=== PATIENT | female | born 1995 ===

== ENCOUNTER 2020-08-31 10:00 | Emergency (ER) | payer MEDICAID, SELFPAY ==
[2020-08-31 10:09] VITALS: BP 106/73; PULSE 81; RESP 14; TEMP 36.8; O2SAT 99; BMI 20.2
--- NOTE | 2020-08-31 10:59 | ED.DENTAL ---
HPI - Dental/Oral General Chief complaint: Dental/Oral Stated complaint: s/p dental surgery,pain Time Seen by Provider: 08/31/20 10:30 Source: patient Mode of arrival: ambulatory Limitations: no limitations History of Present Illness HPI Narrative: A 25-year-old female who is status post bilateral upper wisdom tooth removal on Monday presenting to the ED with complaints of worsening pain Motrin not helping. 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 She denies any other symptoms complaints or concerns at this time. MD Complaint: tooth pain Onset (ago): day(s) (Five days worse today) Duration: worsening Severity scale (1-10): >10 Relieving factors: NSAIDs Exacerbating factors: chewing, cold, heat and drinking fluids Context: other (Recent wisdom extraction) Treatment prior to arrival: none Related Data Previous Rx's Medication Instructions Recorded clindamycin HCl 600 mg PO TID 10 Days #60 cap 08/31/20 ibuprofen 800 mg PO Q8H PRN #14 tab 08/31/20 oxycodone 5 mg PO BID PRN #10 tab 08/31/20 Allergies Allergy/AdvReac Type Severity Reaction Status Date / Time No Known Allergies Allergy Unverified 03/12/20 16:51 [No Known Allergies*] Review of Systems Review of Systems: Constitutional : No Fever, No Chills, No changes in PO intake, No difficulty speaking, + recent dental procedure, + heat or cold intolerance while eating, no recent face trauma, ENT/Mouth : + Dental pain, No Sore throat, No Jaw pain, No throat swelling, No swallowing difficulty, no change in voice, No facial swelling, no drooling, no trismus, no bleeding, no lacerations, no tongue swelling, gum swelling, Eyes: No Eye Pain, No periorbital Swelling Cardiovascular : No Chest Pain, No SOB Respiratory : No Cough, No Sputum, No Wheezing, No Smoke Exposure, No Dyspnea Gastrointestinal : No Nausea, No Vomiting, No Diarrhea Genitourinary : No Dysuria Musculoskeletal : No Myalgias Skin : No rash, no facial swelling or redness, Neuro : No Weakness, No Numbness, No Headache Yes all other systems are reviewed and are negative PMFSH Past Medical History Attestation statement: The following information was validated with the patient. Medical History No known health problems Social History Social History Advance Directives: No Advance Directives Information Provided: No Physical Exam Vital Signs: Vital Signs: Last Vital Signs Temp 98.2 F 08/31/20 10:09 Pulse 81 08/31/20 10:09 Resp 14 08/31/20 10:09 BP 106/73 08/31/20 10:09 Pulse Ox 99 08/31/20 10:09 Body Mass Index 20.2 vital signs have been reviewed as normal and appeared to be correct. Blood pressure normal. Heart rate normal. Respiration rate normal. Temperature normal. Oxygen saturation normal. Appearance: Alert. Oriented X3. No acute distress. Head: Normal external exam. Normocephalic. Atraumatic. Eyes: PERRLA. EOMI. Conjunctiva and sclera normal. Eyelids normal. ENT: EAC normal. TM's Normal. Pharynx normal. Uvula midline. Moist mucous membranes. No trismus noted. No drooling noted. No muffled voice noted. Dentition: Bilateral upper extraction sites with sutures in place. No signs of infection. No fluctuance. Gingival within normal limits. No fluctuance. Not consistent with peritonsillar abscess. Not consistent with dental abscess. No salivary duct obstruction noted. Neck: Normal inspection. Neck supple. FROM. No adenopathy. Thyroid Normal. No meningeal signs. No neck mass noted. Trachea midline. CVS: Normal heart rate and rhythm. Heart sound normal. No murmurs noted. Pulses normal throughout. Respiratory: No respiratory distress. Painless inspiration. Breath sounds normal. No wheezes/rales/rhonchi noted. Chest nontender. No accessory muscle usage noted or decreased air movement noted. Back: Full range of motion noted. Skin: Skin warm and dry. Normal skin color. Normal skin turgor. No rashes/lesions/lacerations noted. Extremities:Extremities exhibit normal range of motion. Extremities nontender. Neuro: Oriented X 3. No motor deficit. No sensory deficit. Reflexes normal. Course Course Course Narrative: 25-year-old female status post wisdom teeth extraction. Presenting to the ED with complaints of worsening pain. On exam no signs of peritonsillar abscess or dental abscess. Will DC home with symptomatic treatment and instructions to return if any new or worsening symptoms to follow up with her electronic gaming device supervisor when he returns back to the office. Patient understands agrees the plan. MDM - Dental/Oral Medical Records Attestation: I reviewed the patient's medical records. Discharge Plan Discharge Clinical Impression: Toothache Patient Disposition: Home, Self-Care Instructions: Toothache (ED) Prescriptions: New clindamycin HCl 300 mg capsule 600 mg PO TID 10 Days Qty: 60 RF: 0 ibuprofen 800 mg tablet 800 mg PO Q8H PRN (Reason: pain) Qty: 14 RF: 0 oxycodone 5 mg tablet 5 mg PO BID PRN (Reason: pain) Qty: 10 RF: 0 Referrals: [facility] [Primary Care Provider] - 2 days (Your electronic gaming device supervisor) Print Language: Bengali
== END 2020-08-31 11:11 | disposition home or self-care (01) ==
PROVIDERS: Emergency Provider Emergency Medicine
DX: K08.89 Other specified disorders of teeth and supporting structures (principal)
CPT/HCPCS: 99283

== ENCOUNTER → 2020-09-07 09:15 | Outpatient (BNVA) | payer MEDICAID, SELFPAY | PROVIDERS: Visit Provider Advanced Practice Midwife | DX: N92.6 Irregular menstruation, unspecified (principal) | CPT/HCPCS: 81025; 99212 ==

== ENCOUNTER → 2020-09-29 11:56 | Outpatient (BNVA) | payer MEDICAID, SELFPAY | PROVIDERS: Visit Provider Advanced Practice Midwife | DX: Z30.09 Encounter for other general counseling and advice on contraception (principal) | CPT/HCPCS: 81025; 99212 ==

== ENCOUNTER 2020-11-10 12:04 | Outpatient (REF) | payer MEDICAID, SELFPAY ==
[2020-11-11 08:15] LABS: HBc Num1 0.05 S/CO (0.00-0.79); HIV AB/AG Nonreactive (Nonreactive); HIV Num 1 0.06 S/CO (0.00-0.99); Hepatitis B Core Antibody Nonreactive (Nonreactive)
[2020-11-11 08:43] LABS: ~HepC Num1 0.14 S/CO (0.00-0.79); ~Hepatitis C Antibody Nonreactive (Nonreactive)
[2020-11-11 08:54] LABS: Syphilis Screen Nonreactive (Nonreactive)
[2020-11-11 11:25] LABS: BV Int Neg Control Negative (Negative); BV Int Pos Control Positive (Positive)
[2020-11-11 12:06] LABS: CT PCR NOT DETECTED (Not Detect.); NG PCR NOT DETECTED (Not Detect.)
== END 2020-11-10 12:05 | disposition home or self-care (01) ==
LOC: HO.LAB 12:04
PROVIDERS: PCP Nurse Practitioner Family; Visit Provider Advanced Practice Midwife
DX: Z01.419 Encounter for gynecological examination (general) (routine) without abnormal findings (principal); Z01.84 Encounter for antibody response examination; Z11.3 Encounter for screening for infections with a predominantly sexual mode of transmission; Z11.4 Encounter for screening for human immunodeficiency virus [HIV]; N76.0 Acute vaginitis; Z20.2 Contact with and (suspected) exposure to infections with a predominantly sexual mode of transmission
CPT/HCPCS: 36415; 86704; 86780; 86803; 87389; 87480; 87491; 87510; 87591; 87660; 88142

== ENCOUNTER 2021-05-29 13:29 | Emergency (ER) | payer MEDICAID, SELFPAY ==
[2021-05-29 15:17] VITALS: BP 100/68; PULSE 82; RESP 18; TEMP 36.8; O2SAT 98; BMI 20.2
[2021-05-29 15:46] LABS: Appearance Urine CLEAR; Color Urine YELLOW; Glucose Urine UA NEG (NEG); Leukocyte Esterase Urine TRACE (NEG); Nitrite Urine NEG (NEG); Specific Gravity - Urine 1.025 (1.005-1.025); UACC Culture Trigger YES; Urine Blood NEG (NEG); Urine Ketones NEG (NEG); Urine Protein NEG (NEG-TRACE)
[2021-05-29 15:54] LABS: Bacteria Urine TRACE /LPF; RBC Urine 0-2 /HPF (0); Squamous Epithelial Cell Urine TRACE /LPF
--- NOTE | 2021-05-29 17:52 | ED_ITS ---
HPI - Female Genitourinary General Chief complaint: Urogenital-Female Stated complaint: UTI Time Seen by Provider: 05/29/21 14:40 Source: patient Mode of arrival: ambulatory Limitations: no limitations History of Present Illness HPI Narrative: 25-year-old female no known medical history presents to the emergency department with urinary frequency, urgency and dysuria. Patient tells me that this started this morning. She tells me it feels like her typical UTI. She reports a little bit of suprapubic discomfort, but not pain. She tells me she reached out to her agricultural economics teacher but they could not serous since it is the weekend. She tells me it is very uncomfortable when she urinates. She denies any vaginal discharge. She does not think she has any STDs, and does not want to get tested here today as she regularly gets this done by her agricultural economics teacher. Patient denies back pain, fevers, chills, nausea, vomiting, chest pain, shortness of breath. MD elicited complaint: dysuria and UTI Onset (ago): day(s) (1) Location of symptoms: suprapubic Severity: moderate Female Urogenital Radiation: Non-Radiating Quality of pain: other ( discomfort ) Consistency: constant Vaginal discharge: none Vaginal bleeding: none Urinary symptoms: Dysuria, Urgency and Frequency Exacerbating factors: none Relieving factors: none Associated symptoms: abdominal pain (Suprapubic discomfort.) Treatment prior to arrival: none Sexual activity: Yes Patient : No Related Data Home Medications Medication Instructions Recorded Confirmed clonazepam 0.5 mg disintegrating 0.5 mg PO DAILY 09/29/20 tablet trazodone 50 mg tablet 50 mg PO BEDTIME PRN 09/29/20 Previous Rx's Medication Instructions Recorded clindamycin HCl 300 mg capsule 600 mg PO TID 10 Days #60 cap 08/31/20 ibuprofen 800 mg tablet 800 mg PO Q8H PRN #14 tab 08/31/20 oxycodone 5 mg tablet 5 mg PO BID PRN #10 tab 08/31/20 medroxyprogesterone 150 mg/mL 150 mg IM [id number] #1 ml 09/29/20 intramuscular suspension (Depo-Provera) cefuroxime axetil 250 mg tablet 250 mg PO BID 7 Days #14 tab 05/29/21 nitrofurantoin 100 mg PO BID 5 Days #10 cap 05/29/21 monohydrate/macrocrystals 100 mg capsule (Macrobid) phenazopyridine 100 mg tablet 200 mg PO TID 2 Days #6 tab 05/29/21 (Pyridium) Allergies Allergy/AdvReac Type Severity Reaction Status Date / Time No Known Allergies Allergy Verified 05/29/21 15:17 [No Known Allergies*] Review of Systems Review of Systems: Constitutional : No Weight loss, No Fever, No Chills, No Fatigue, No Malaise ENT/Mouth : No sore throat, No Rhinorrhea Eyes: No Eye Pain, No Swelling, No Redness Cardiovascular : No Chest Pain, No SOB, No Dyspnea on Exertion, No Orthopnea, No Edema, No Palpitations Respiratory : No Cough, No Sputum, No Wheezing Gastrointestinal : No Nausea, No Vomiting, No Diarrhea, No Constipation, No abdominal Pain, No Hematochezia, No Melena Genitourinary : + Dysuria, + Urinary Frequency, No Hematuria, Musculoskeletal : No joint pain, No Myalgias, No Joint Swelling Skin : No Skin Lesions, No rash Neuro : No Weakness, No Numbness, No Dizziness, No Headache Psych : No Anxiety/Panic, No Depression All other systems reviewed and are negative PMFSH Past Medical History Attestation statement: The following information was validated with the patient. Source: old records reviewed and nursing notes reviewed Medical History No known health problems Surgical History Hx of wisdom tooth extraction Social History Social History Alcohol intake: never Patient : No Physical Exam Vital Signs: Vital Signs: Last Vital Signs Temp 98.2 F 05/29/21 15:17 Pulse 82 05/29/21 15:17 Resp 18 05/29/21 15:17 BP 100/68 05/29/21 15:17 Pulse Ox 98 05/29/21 15:17 BMI result Body Mass Index 20.2 VSS Appearance: Alert.? Oriented X3.? No acute distress.? Head: Normocephalic, atraumatic, no step-offs or deformities Eyes: Pupils equal, round and reactive to light.? ENT: Pharynx normal.? Neck: Normal inspection.? Neck supple.? CVS: Normal heart rate and rhythm.? Pulses normal.? Respiratory: No respiratory distress.? Breath sounds normal.? Abdomen: Soft and nontender.? Skin: Skin warm and dry.? Normal skin color.? Normal skin turgor.? Extremities:5/5 strength to bilateral upper and lower extremities Back: No midline tenderness, no C-spine tenderness, full range of motion, no CVA tenderness bilaterally Neuro: Oriented X 3.? No motor deficit.? No sensory deficit. MDM - Female Genitourinary MDM Narrative Medical decision making narrative: 1800 25-year-old female no known medical history presents to the emergency department urinary frequency, urgency, and dysuria x1 day. Patient tells me this feels like her typical UTI. Physical examination is benign. Vital signs are stable. Patient's urine shows trace leuk esterases, and urine white blood cells. Since patient is symptomatic I will treat for urinary tract infection. I will also give patient pyridium for symptomatic relief. Patient's history and physical exam are not consistent with pyelonephritis, or obstructing stone. This is likely a urinary tract infection. Patient denies white vaginal discharge, unlikely a yeast infection. Patient will get tested for STDs by her primary provider, who routinely test her for everything as she tells me. At this time patient is safe for discharge home, she should return to the emergency department with new or worsening symptoms such as abdominal pain, fevers, chills, nausea, vomiting, diarrhea, chest pain, shortness of breath. Comfortable with discharge home Differential Diagnosis Differential diagnosis: Likely urinary tract infection and bacterial vaginosis Medical Records Attestation: I reviewed the patient's medical records. Lab Data Attestation: I reviewed the patient's lab results. Labs: Lab Results 05/29/21 Range/Units 15:22 Urine Color YELLOW Urine Appearance CLEAR Urine pH 6.0 (5.0-8.0) Ur Specific [place] 1.025 (1.005-1.025) Urine Protein NEG (NEG-TRACE) MG/DL Urine Glucose (UA) NEG (NEG) MG/DL Urine Ketones NEG (NEG) MG/DL Urine Blood NEG (NEG) Urine Nitrite NEG (NEG) Ur Leukocyte Esterase TRACE H (NEG) Urine RBC 0-2 (0) /HPF Urine WBC 5-9 H (0-4) /HPF Ur Squamous Epith Cells TRACE /LPF Urine Bacteria TRACE /LPF Critical Care Time Critical Care Time Critical Care Time: No Discharge Plan Discharge Clinical Impression: UTI (urinary tract infection) Patient Disposition: Home, Self-Care Instructions: Urinary Tract Infection in Women (ED) Additional Instructions: Take your medications as prescribed. If you were prescribed antibiotics today, it is important that you take your medication to their entirety, do not skip any doses, do not finish them early. Follow-up with your primary care provider this week. Return to the emergency department with new or worsening symptoms. In case of emergency call 911 Prescriptions: New cefuroxime axetil 250 mg tablet 250 mg PO BID 7 Days Qty: 14 RF: 0 phenazopyridine [Pyridium] 100 mg tablet 200 mg PO TID 2 Days Qty: 6 RF: 0 No Action nitrofurantoin monohyd/m-cryst [Macrobid] 100 mg capsule 100 mg PO BID 5 Days Qty: 10 RF: 0 clindamycin HCl 300 mg capsule 600 mg PO TID 10 Days Qty: 60 RF: 0 ibuprofen 800 mg tablet 800 mg PO Q8H PRN (Reason: pain) Qty: 14 RF: 0 oxycodone 5 mg tablet 5 mg PO BID PRN (Reason: pain) Qty: 10 RF: 0 trazodone 50 mg tablet 50 mg PO BEDTIME PRNRF: 0 clonazepam 0.5 mg tablet,disintegrating 0.5 mg PO DAILY RF: 0 medroxyprogesterone [Depo-Provera] 150 mg/mL suspension 150 mg IM [id number] Qty: 1 RF: 3 Referrals: Physician,Unknown J [Primary Care Provider] - 2 days Stand Alone Forms: Work/School Release
== END 2021-05-29 18:48 | disposition home or self-care (01) ==
PROVIDERS: Emergency Provider Emergency Medicine Emergency Medical Services
DX: N39.0 Urinary tract infection, site not specified (principal); Z87.440 Personal history of urinary (tract) infections
CPT/HCPCS: 81001; 87086; 99283; 99284

== ENCOUNTER 2021-08-01 16:59 | Emergency (ER) | payer MEDICAID, SELFPAY ==
--- NOTE | ~2021-08-01 | XR_ITS ---
EXAMINATION: LUMBAR SPINE, SACRUM AND COCCYX, LEFT ELBOW CLINICAL INFORMATION: Pain status post fall COMPARISON: CT abdomen pelvis 02/06/2060 TECHNIQUE: 2 views lumbar spine, 3 views sacrum and coccyx, 3 views elbow FINDINGS: The lumbar spine appears normal. On the ventral surface of the mid sacrum around S4/S5, there is mild buckling which was not seen on the prior CT scan from 02/06/2016 and the possibility of fracture cannot be excluded. No significant bone joint or soft tissue abnormality is seen involving the left elbow. XR/XR elbow LT min 3V IMPRESSION: There is a question of a sacral fracture when compared to the prior CT scan. If clinically indicated, a CT scan of the sacrum could be performed to confirm this.
--- NOTE | ~2021-08-01 | XR_ITS ---
EXAMINATION: LUMBAR SPINE, SACRUM AND COCCYX, LEFT ELBOW CLINICAL INFORMATION: Pain status post fall COMPARISON: CT abdomen pelvis 02/06/2060 TECHNIQUE: 2 views lumbar spine, 3 views sacrum and coccyx, 3 views elbow FINDINGS: The lumbar spine appears normal. On the ventral surface of the mid sacrum around S4/S5, there is mild buckling which was not seen on the prior CT scan from 02/06/2016 and the possibility of fracture cannot be excluded. No significant bone joint or soft tissue abnormality is seen involving the left elbow. XR/XR sacrum coccyx min 2V IMPRESSION: There is a question of a sacral fracture when compared to the prior CT scan. If clinically indicated, a CT scan of the sacrum could be performed to confirm this.
--- NOTE | ~2021-08-01 | XR_ITS ---
EXAMINATION: LUMBAR SPINE, SACRUM AND COCCYX, LEFT ELBOW CLINICAL INFORMATION: Pain status post fall COMPARISON: CT abdomen pelvis 02/06/2060 TECHNIQUE: 2 views lumbar spine, 3 views sacrum and coccyx, 3 views elbow FINDINGS: The lumbar spine appears normal. On the ventral surface of the mid sacrum around S4/S5, there is mild buckling which was not seen on the prior CT scan from 02/06/2016 and the possibility of fracture cannot be excluded. No significant bone joint or soft tissue abnormality is seen involving the left elbow. XR/XR lumbar spine 2-3V IMPRESSION: There is a question of a sacral fracture when compared to the prior CT scan. If clinically indicated, a CT scan of the sacrum could be performed to confirm this.
[2021-08-01 17:06] VITALS: BP 108/71; PULSE 85; RESP 18; TEMP 37.1; O2SAT 100; BMI 24.2
--- NOTE | 2021-08-01 17:12 | ED_ITS ---
HPI - Fall General Chief Complaint: Fall Stated Complaint: fall Time Seen by Provider: 08/01/21 17:10 Source: patient Mode of arrival: ambulatory Limitations: no limitations History of Present Illness HPI Narrative: 25-year-old female presents to the ER with low back, buttock and left elbow pain after she slipped on ice outside proximally 20 his ago. She states she did not hit her head or lose consciousness. She is not on anticoagulation. She reports hurts to walk in her lower back and buttock. She denies any numbness or tingling down her legs. No incontinence. She reports left elbow pain but is able to fully flex and extend the elbow. He denies any numbness or tingling. No weakness. She is right-hand dominant. MD complaint: fall Onset (ago): minute(s) Fall from: standing Fall witnessed: no Place fall occurred: street Loss of consciousness: none Prolonged down time: no Symptoms prior to fall: none Context: tripped/slipped Location of injury: buttocks Location of injury - extremities: left: elbow Severity: severe Severity scale (1-10): 8 Quality: stabbing and aching Associated symptoms (after fall): denies Related Data Home Medications Medication Instructions Recorded Confirmed clonazepam 0.5 mg disintegrating 0.5 mg PO DAILY 09/29/20 tablet trazodone 50 mg tablet 50 mg PO BEDTIME PRN 09/29/20 Previous Rx's Medication Instructions Recorded clindamycin HCl 300 mg capsule 600 mg PO TID 10 Days #60 cap 08/31/20 ibuprofen 800 mg tablet 800 mg PO Q8H PRN #14 tab 08/31/20 oxycodone 5 mg tablet 5 mg PO BID PRN #10 tab 08/31/20 medroxyprogesterone 150 mg/mL 150 mg IM [id number] #1 ml 09/29/20 intramuscular suspension (Depo-Provera) cefuroxime axetil 250 mg tablet 250 mg PO BID 7 Days #14 tab 05/29/21 nitrofurantoin 100 mg PO BID 5 Days #10 cap 05/29/21 monohydrate/macrocrystals 100 mg capsule (Macrobid) phenazopyridine 100 mg tablet 200 mg PO TID 2 Days #6 tab 05/29/21 (Pyridium) hydrocodone 5 mg-acetaminophen 325 1 tab PO Q8H PRN #7 tab 08/01/21 mg tablet ibuprofen 600 mg tablet 600 mg PO Q6H PRN #20 tab 08/01/21 Allergies Allergy/AdvReac Type Severity Reaction Status Date / Time No Known Allergies Allergy Verified 05/29/21 15:17 [No Known Allergies*] Review of Systems Verdana 4l Review of Systems: Verdana 4d Verdana 4d Constitutional: No Fever, No Chills Cardiovascular: No Chest Pain, No SOB Gastrointestinal: No Nausea, No Vomiting, No abdominal Pain Genitourinary: No Hematuria, No incontinence Musculoskeletal: + joint pain, + Myalgias Skin: + Skin LesionsLesions, No rash Neuro: No Weakness, No Numbness, No Dizziness, No Headache Psych: No Anxiety/Panic, No Depression Heme/Lymph: + Bruising, No Lymphadenopathy PMFSH Past Medical History Medical History No known health problems Surgical History Hx of wisdom tooth extraction Social History Social History Alcohol intake: never Advance Directives: No Advance Directives Information Provided: No Patient : No Physical Exam Verdana 4l Vital Signs: Verdana 4d Verdana 4d Vital Signs: Verdana 4d Verdana 4Bd Last Vital Signs Verdana 4d [employer] New 4d [employer] New 4d Temp 98.7 F 08/01/21 17:06 [employer] New 4d Pulse 85 08/01/21 17:06 [employer] New 4d Resp 18 08/01/21 17:06 BP 108/71 08/01/21 17:06 Pulse Ox 100 08/01/21 17:06 BMI result Body Mass Index 24.2 Appearance: Alert. Oriented X3. No acute distress. HEENT: normal inspection CVS: Normal heart rate and rhythm. Pulses normal. Respiratory: No respiratory distress. Skin: Skin warm and dry. Normal skin color. Normal skin turgor. No rashes. Back: Normal inspection. Low lumbar tenderness along with sacral and coccyx tenderness. Mild low back soft tissue tenderness bilaterally. Negative straight leg raise test. Extremities: Normal inspection times poor, normal range of motion of all joints. Left elbow has some mild generalized tenderness without ecchymosis. Neurovascularly intact distally. Full range of motion of the left elbow. No point tenderness. Neuro: Oriented X 3. No motor deficit. No sensory deficit. Ambulates with steady gait. Course Course Course Narrative: 25-year-old female presenting to the ER with low back pain, buttock pain, left elbow pain after since upon fell on ice outside about 20 minutes ago. She is ambulating with a steady gait but reports significant lower back and tailbone pain. Exam is nonfocal. She has full range of motion of her elbow. X-rays are pending. Reevaluation(s) Reevaluation #1: X-ray showing question of a sacral fracture. Other imaging is negative. Results were discussed with the patient as well as management and return precautions. 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 Will prescribe short course of oxycodone for pain and anti-inflammatories. She will follow-up with her primary care doctor this week. Stable for DC home. MDM - Fall Lab Data Labs: Lab Results 08/01/21 Range/Units 17:34 Urine Test NEGATIVE (NEGATIVE) Critical Care Time Critical Care Time Critical Care Time: No Discharge Plan Discharge Clinical Impression: Closed sacral fracture Patient Disposition: Home, Self-Care Instructions: Sacral Fracture (ED) Additional Instructions: X-rays today showed a question of a small sacral fracture, which is a bone your pelvis, below your spine. Treatment is supportive care. Rest, no strenuous activity. Recommend purchasing a doughnut pillow to sit on for cushion. Take the prescribed medications as directed. Follow-up with your primary care doctor. If you develop new or worsening symptoms call 911 or come back to the ER for further evaluation. Prescriptions: New ibuprofen 600 mg tablet 600 mg PO Q6H PRN (Reason: pain) Qty: 20 0RF hydrocodone-acetaminophen 5-325 mg tablet 1 tab PO Q8H PRN (Reason: pain) Qty: 7 0RF No Action nitrofurantoin monohyd/m-cryst [Macrobid] 100 mg capsule 100 mg PO BID 5 Days Qty: 10 0RF clindamycin HCl 300 mg capsule 600 mg PO TID 10 Days Qty: 60 0RF ibuprofen 800 mg tablet 800 mg PO Q8H PRN (Reason: pain) Qty: 14 0RF oxycodone 5 mg tablet 5 mg PO BID PRN (Reason: pain) Qty: 10 0RF cefuroxime axetil 250 mg tablet 250 mg PO BID 7 Days Qty: 14 0RF phenazopyridine [Pyridium] 100 mg tablet 200 mg PO TID 2 Days Qty: 6 0RF trazodone 50 mg tablet 50 mg PO BEDTIME PRN0RF clonazepam 0.5 mg tablet,disintegrating 0.5 mg PO DAILY 0RF medroxyprogesterone [Depo-Provera] 150 mg/mL suspension 150 mg IM [id number] Qty: 1 3RF Referrals: [place] [Primary Care Provider] - 2 days Stand Alone Forms: Work/School Release
[2021-08-01 17:40] LABS: Urine Pregnancy NEGATIVE (NEGATIVE)
[2021-08-01 17:41] LABS: UPreg QC Valid YES
== END 2021-08-01 19:02 | disposition home or self-care (01) ==
PROVIDERS: Physician Assistant; Emergency Provider Emergency Medicine Emergency Medical Services
DX: S32.10XA Unspecified fracture of sacrum, initial encounter for closed fracture (principal); M54.50 Low back pain, unspecified; M25.522 Pain in left elbow; W00.0XXA Fall on same level due to ice and snow, initial encounter; Y93.9 Activity, unspecified; Y92.9 Unspecified place or not applicable; Y99.9 Unspecified external cause status; Z79.899 Other long term (current) drug therapy
CPT/HCPCS: 72100; 72220; 73080; 81025; 99284

== ENCOUNTER 2021-08-07 17:47 | Emergency (ER) | payer MEDICAID, SELFPAY ==
--- NOTE | ~2021-08-07 | CT_ITS ---
EXAMINATION: CT sacrum CLINICAL INFORMATION: Question sacral fracture COMPARISON: Sacral radiographs 08/01/2021 TECHNIQUE: Helical scanning was performed with submillimeter collimation through the sacrum without intravenous contrast. Sagittal and coronal multiplanar 2-D reconstructions were obtained. This CT examination was performed using dose optimization techniques as appropriate, variously including the following: *Automated exposure control *Adjustment of mA and/or kV according to patient size (this includes techniques or standardized protocols for targeted exams where dose is matched to indication/reason for exam; i.e. extremities or head) *Use of iterative reconstruction technique DLP: 293 mGy-cm FINDINGS: SOFT TISSUES: Unremarkable VASCULAR: Unremarkable. LYMPH NODES: No lymphadenopathy BLADDER: Unremarkable PELVIC VISCERA: Unremarkable VISUALIZED GASTROINTESTINAL TRACT: Colonic diverticulosis without evidence of diverticulitis. Normal appendix. Desiccated stool within the rectum. OSSEOUS STRUCTURES: No acute fracture or dislocation. CT/CT sacrum IMPRESSION: 1. No acute fracture or dislocation.
[2021-08-07 17:57] VITALS: BP 118/69; PULSE 80; RESP 16; TEMP 36.6; O2SAT 99; BMI 20.2
--- NOTE | 2021-08-07 21:22 | ED_ITS ---
HPI - Back Pain/Injury General Chief Complaint: Back Pain/Injury Stated Complaint: lower back pain? injury Time Seen by Provider: 08/07/21 20:13 Source: patient Mode of arrival: ambulatory Limitations: no limitations History of Present Illness HPI Narrative: 25-year-old female presents with worsening low back pain. Patient was seen 08/01/21, and diagnosed with possible sacral fracture. Patient has been taking ibuprofen and Vicodin. The pain was getting better. Patient has been resting, doing no heavy lifting, and using a pillow to sit. Today the pain got much worse, and is radiating into her bilateral legs. She has no saddle paresthesias, no incontinence of bowel or bladder, no fevers, no leg weakness. She is having regular bowel movements. She does tell me that last night she attempted to have intercourse with her partner, and the pain started after that. Related Data Home Medications Medication Instructions Recorded Confirmed clonazepam 0.5 mg disintegrating 0.5 mg PO DAILY 09/29/20 tablet trazodone 50 mg tablet 50 mg PO BEDTIME PRN 09/29/20 Previous Rx's Medication Instructions Recorded clindamycin HCl 300 mg capsule 600 mg PO TID 10 Days #60 cap 08/31/20 ibuprofen 800 mg tablet 800 mg PO Q8H PRN #14 tab 08/31/20 oxycodone 5 mg tablet 5 mg PO BID PRN #10 tab 08/31/20 medroxyprogesterone 150 mg/mL 150 mg IM [id number] #1 ml 09/29/20 intramuscular suspension (Depo-Provera) cefuroxime axetil 250 mg tablet 250 mg PO BID 7 Days #14 tab 05/29/21 nitrofurantoin 100 mg PO BID 5 Days #10 cap 05/29/21 monohydrate/macrocrystals 100 mg capsule (Macrobid) phenazopyridine 100 mg tablet 200 mg PO TID 2 Days #6 tab 05/29/21 (Pyridium) hydrocodone 5 mg-acetaminophen 325 1 tab PO Q8H PRN #7 tab 08/01/21 mg tablet ibuprofen 600 mg tablet 600 mg PO Q6H PRN #20 tab 08/01/21 Allergies Allergy/AdvReac Type Severity Reaction Status Date / Time No Known Allergies Allergy Verified 05/29/21 15:17 [No Known Allergies*] Review of Systems Constitutional: Constitutional: Denies body ache(s), Denies chills, Denies fatigue, Denies fever(s), Denies headache(s), Denies malaise and Denies weakness Eyes: Eyes: Denies diplopia ENT: Denies vertigo, Denies dizziness, Denies otalgia, Denies headache(s), Denies mouth pain, Denies post nasal drip, Denies sinus pain, Denies sinus pressure, Denies sore throat and Denies throat swelling Cardiovascular: Cardiovascular: Denies chest pain, Denies syncope, Denies leg edema, Denies lightheadedness, Denies Loss of Consciousness, Denies palpitations and Denies dyspnea Respiratory: Respiratory: Denies chest congestion, Denies cough and Denies dyspnea Gastrointestinal: Gastrointestinal: Denies abdominal pain, Denies hematochezia, Denies constipation, Denies fecal incontinence, Denies diarrhea and Denies vomiting Genitourinary: Genitourinary: Denies dysuria and Denies urinary incontinence Musculoskeletal: Musculoskeletal: Reports back pain Neurologic: Denies confusion, Denies vertigo, Denies dizziness, Denies syncope, Denies headache(s) and Denies weakness Psychiatric: Psychiatric: Denies anxiety, Denies confusion and Denies depre ssion Endocrine: Endocrine: Denies fatigue and Denies palpitations Allergic/Immunologic: Allergic/Immunologic: Denies throat swelling PMFSH Past Medical History Medical History No known health problems Surgical History Hx of wisdom tooth extraction Social History Social History Alcohol intake: never Advance Directives: No Advance Directives Information Provided: Yes Physical Exam Vital Signs: Vital Signs: Last Vital Signs Temp 97.9 F 08/07/21 17:57 Pulse 80 08/07/21 17:57 Resp 16 08/07/21 17:57 BP 118/69 08/07/21 17:57 Pulse Ox 99 08/07/21 17:57 BMI result Body Mass Index 20.2 Const: General: No confusion Nutritional Appearance: well nourished Orientation/consciousness: No confusion Limitations: no limitations Eyes: Conjunctivae: conjunctivae normal Pupils: Equal, round and reactive pupils present EOM: EOMs intact bilaterally Neck: Neck: Yes full ROM, Yes no lymphadenopathy and Yes supple Resp: Effort & Inspection: normal respiratory effort and able to speak in complete sentences Auscultation: clear to auscultation bilaterally, no crackles, no rales, no rhonchi and no wheezes Cardio: Rate: regular rate Rhythm: regular rhythm Heart sounds: S1 normal heart sound present and S2 normal heart sound present : General: Yes no CVA tenderness Back/Spine/Pelvis: Back: no CVA tenderness Cervical Spine: normal cervical lordosis, No cervical ROM normal, No step off deformity and No cervical ROM abnormal Thoracic/Lumbar Spine: straight leg raise negative bilaterally, No thoracic spinal tenderness and lumbar spinal tenderness at L5 Pelvis: no pain with anterior-posterior compression Sacrum: tenderness midline Coccyx: Coccyx tenderness present on direct palpation Skin: General skin exam: no rashes or lesions noted Neuro: General: No confusion Cranial nerves: Yes Equal, round and reactive pupils present Extrem: General: Yes normal to inspection and Yes full ROM Psych: Appearance: grossly normal Affect: normal affect Attitude: cooperative Thought process: Normal thought process present Course Course Course Narrative: 25-year-old female presents with worsening sacral pain. Patient was diagnosed with possible sacral fracture 1 week ago, pain was getting better, attempted intercourse last night, pain is worse. Patient has no red flag symptoms for cauda equina, intact lower extremity deep tendon reflexes, sensation, lower extremity pulses, lower extremity strength. Patient is tender to palpate over her sacrum, and over her coccyx. Will get CT to more accurately evaluate fracture. After imaging, plan is to prescribe more pain medication, avoid sexual intercourse, continue to rest, continue to avoid heavy lifting Signed pt out to Dr Leung, pending CT From 08/01/21: XR Scacrum and Lumbar Spine: There is a question of a sacral fracture when compared to the prior CT scan. If clinically indicated, a CT scan of the sacrum could be performed to confirm this.? MDM - Back Pain/Injury Lab Data Labs: Lab Results 08/07/21 Range/Units 21:27 Urine Test NEGATIVE (NEGATIVE) Discharge Plan Discharge Clinical Impression: Closed sacral fracture Patient Disposition: Home, Self-Care Additional Instructions: Please return to the emergency room for any sudden leg weakness, incontinence of bowel or bladder, numbness or tingling in your groin, worsening pain. Please avoid heavy lifting, take pain medication, follow-up with primary care provider Prescriptions: No Action nitrofurantoin monohyd/m-cryst [Macrobid] 100 mg capsule 100 mg PO BID 5 Days Qty: 10 0RF clindamycin HCl 300 mg capsule 600 mg PO TID 10 Days Qty: 60 0RF ibuprofen 800 mg tablet 800 mg PO Q8H PRN (Reason: pain) Qty: 14 0RF oxycodone 5 mg tablet 5 mg PO BID PRN (Reason: pain) Qty: 10 0RF cefuroxime axetil 250 mg tablet 250 mg PO BID 7 Days Qty: 14 0RF phenazopyridine [Pyridium] 100 mg tablet 200 mg PO TID 2 Days Qty: 6 0RF ibuprofen 600 mg tablet 600 mg PO Q6H PRN (Reason: pain) Qty: 20 0RF hydrocodone-acetaminophen 5-325 mg tablet 1 tab PO Q8H PRN (Reason: pain) Qty: 7 0RF trazodone 50 mg tablet 50 mg PO BEDTIME PRN0RF clonazepam 0.5 mg tablet,disintegrating 0.5 mg PO DAILY 0RF medroxyprogesterone [Depo-Provera] 150 mg/mL suspension 150 mg IM [id number] Qty: 1 3RF
[2021-08-07 21:38] LABS: UPreg QC Valid YES; Urine Pregnancy NEGATIVE (NEGATIVE)
== END 2021-08-07 23:43 | disposition home or self-care (01) ==
PROVIDERS: Physician Assistant; Emergency Provider Emergency Medicine
DX: S32.10XA Unspecified fracture of sacrum, initial encounter for closed fracture (principal); X58.XXXA Exposure to other specified factors, initial encounter; Y93.9 Activity, unspecified; Y92.9 Unspecified place or not applicable; Y99.9 Unspecified external cause status
CPT/HCPCS: 72192; 81025; 99284

== ENCOUNTER 2021-08-14 22:02 | Emergency (ER) | payer MEDICAID, SELFPAY ==
--- NOTE | ~2021-08-14 | XR_ITS ---
EXAMINATION: XR SACRUM AND COCCYX CLINICAL INFORMATION: Fall. Pain. COMPARISON: None TECHNIQUE: 2 views of the sacrum and 2 views of the coccyx were obtained. FINDINGS: There are no fractures. No bone, joint or soft tissue abnormality is demonstrated. XR/XR sacrum coccyx min 2V IMPRESSION: No acute fracture or dislocation.
--- NOTE | ~2021-08-14 | XR_ITS ---
EXAMINATION: XR HIP, RIGHT CLINICAL INFORMATION: Fall. Pain. COMPARISON: None TECHNIQUE: Two views of the right hip. Frontal view of the pelvis. FINDINGS: No fracture or dislocation. Joint spaces are maintained. The hips are well aligned. The pelvic rim is intact. The sacroiliac joints and pubic symphysis are well aligned. Normal bowel gas pattern. XR/XR hip RT w PEL1V IMPRESSION: Normal right hip/pelvis.
[2021-08-14 22:08] VITALS: BP 112/50; PULSE 78; RESP 18; TEMP 37.2; O2SAT 97; BMI 21.8
--- NOTE | 2021-08-14 22:45 | ED.FALL ---
HPI - Fall General Chief Complaint: Fall Stated Complaint: fell down stairs,,hx of fx Time Seen by Provider: 08/14/21 22:34 Source: patient Mode of arrival: ambulatory Limitations: no limitations History of Present Illness HPI Narrative: 26-year-old female here with reports of low back pain and right hip pain after a slip down 7 stairs. No hitting of the head or loss of consciousness. Patient tells me that she was seen here a few weeks ago after a fall and had a coccyx fracture and is having worsening pain over the site. No neck pain, chest pain, shortness of breath, headache, vomiting, abdominal pain, vision changes Related Data Home Medications Medication Instructions Recorded Confirmed clonazepam 0.5 mg disintegrating 0.5 mg PO DAILY 09/29/20 tablet trazodone 50 mg tablet 50 mg PO BEDTIME PRN 09/29/20 Previous Rx's Medication Instructions Recorded clindamycin HCl 300 mg capsule 600 mg PO TID 10 Days #60 cap 08/31/20 ibuprofen 800 mg tablet 800 mg PO Q8H PRN #14 tab 08/31/20 oxycodone 5 mg tablet 5 mg PO BID PRN #10 tab 08/31/20 medroxyprogesterone 150 mg/mL 150 mg IM [id number] #1 ml 09/29/20 intramuscular suspension (Depo-Provera) cefuroxime axetil 250 mg tablet 250 mg PO BID 7 Days #14 tab 05/29/21 nitrofurantoin 100 mg PO BID 5 Days #10 cap 05/29/21 monohydrate/macrocrystals 100 mg capsule (Macrobid) phenazopyridine 100 mg tablet 200 mg PO TID 2 Days #6 tab 05/29/21 (Pyridium) hydrocodone 5 mg-acetaminophen 325 1 tab PO Q8H PRN #7 tab 08/01/21 mg tablet ibuprofen 600 mg tablet 600 mg PO Q6H PRN #20 tab 08/01/21 Allergies Allergy/AdvReac Type Severity Reaction Status Date / Time No Known Allergies Allergy Verified 08/14/21 22:08 [No Known Allergies*] Review of Systems Review of Systems: Yes all other systems are reviewed and are negative Constitutional: Constitutional: Reports no additional constitutional complaints, Denies body ache(s), Denies chills, Denies fever(s), Denies headache(s) and Denies weakness Eyes: Eyes: Reports no additional eye complaints and Denies change in vision ENT: Reports system reviewed and no additional complaints, except as documented, Denies dizziness, Denies headache(s), Denies nasal congestion, Denies nasal discharge and Denies neck pain Cardiovascular: Cardiovascular: Reports no additional cardiovascular complaints, Denies chest pain, Denies leg edema and Denies dyspnea Respiratory: Respiratory: Reports no additional respiratory complaints, Denies cough and Denies dyspnea Gastrointestinal: Gastrointestinal: Reports no additional gastrointestinal complaints, Denies abdominal pain, Denies diarrhea, Denies nausea and Denies vomiting Genitourinary: Genitourinary: Reports no additional female genitourinary complaints and Denies urinary incontinence Musculoskeletal: Musculoskeletal: Reports no additional musculoskeletal complaints, Reports back pain, Reports arthralgias, Denies joint swelling, Denies neck pain, Denies numbness and Denies tingling Integumentary/Breasts: Skin/Breast: Reports system reviewed and no additional complaints, except as docu and Denies rash Neurologic: Reports system reviewed and no additional complaints, except as documented, Denies Abnormal speech present, Denies dizziness, Denies headache(s), Denies numbness, Denies tingling and Denies weakness PMFSH Past Medical History Attestation statement: The following information was validated with the patient. Source: old records reviewed and nursing notes reviewed Medical History No known health problems Surgical History Hx of wisdom tooth extraction Social History Social History Alcohol intake: never Advance Directives: No Patient : No Physical Exam Vital Signs: Vital Signs: Last Vital Signs Temp 99 F 08/14/21 22:08 Pulse 78 08/14/21 22:08 Resp 18 08/14/21 22:08 BP 112/50 L 08/14/21 22:08 Pulse Ox 97 08/14/21 22:08 BMI result Body Mass Index 21.8 Const: General: cooperative, healthy appearing, comfortable and no acute distress Orientation/consciousness: patient oriented x3 Limitations: no limitations HENMT: Head: Yes normal to inspection Ears: hearing grossly normal bilaterally General nose exam: Normal external nose present Face and sinus: Yes normal facial exam Mouth: Normal oral and palatal mucosa present Throat: Yes posterior oropharynx normal Eyes: General: appearance normal, both eyes and all related structures Pupils: Equal, round and reactive pupils present Neck: Neck: Yes normal visual inspection Chest: Chest palpation & inspection: normal inspection of the chest Resp: Effort & Inspection: normal respiratory effort Auscultation: clear to auscultation bilaterally Cardio: Rate: regular rate Rhythm: regular rhythm Peripheral pulses: Peripheral pulses 2+ throughout GI: Inspection: Yes normal to inspection Palpation (GI): Soft to palpation and nontender Auscultation: normal bowel sounds Back/Spine/Pelvis: Other: Tenderness to the coccyx with no step-offs or deformities. Tenderness to the right lateral hip with no obvious shortening, rotation or deformity. Neurovascular intact distally Thoracic/Lumbar Spine: thoracic and lumbar spine normal to inspection Skin: General skin exam: no rashes or lesions noted Neuro: General: patient oriented x3, no focal motor deficits and normal sensation to monofilament Cranial nerves: Yes Equal, round and reactive pupils present Cognition (Neuro): normal cognition Speech: No Abnormal speech present Gait exam (Neuro): Normal gait present Motor exam (neuro): 5/5 motor strength present throughout Extrem: General: Yes normal to inspection Course Course Course Narrative: 26-year-old female here with mechanical fall landing on her buttocks and right hip. No head injury or loss of consciousness. Exam has some tenderness over the coccyx and right hip with no obvious deformity. Normal neurological exam. Vitals are stable. Will check x-rays 2330-x-ray show no bony abnormality. Likely contusion. Plan for discharge home with supportive care. Reviewed worrisome signs and symptoms of when to return to the emergency department. Comfortable discharge home MDM - Fall Medical Records Attestation: I reviewed the patient's medical records. Lab Data Attestation: I reviewed the patient's lab results. Imaging Data hip pelvis xray: Attestation: I personally reviewed and interpreted this imaging study as follows: Radiologist's impression: FINDINGS: No fracture or dislocation. Joint spaces are maintained. The hips are well aligned. The pelvic rim is intact. The sacroiliac joints and pubic symphysis are well aligned. Normal bowel gas pattern.? XR/XR hip RT w PEL1V IMPRESSION: Normal right hip/pelvis. ? sacrum/coccx x-ray: Attestation: I personally reviewed and interpreted this imaging study as follows: Radiologist's impression: FINDINGS: There are no fractures. No bone, joint or soft tissue abnormality is demonstrated. XR/XR sacrum coccyx min 2V IMPRESSION: No acute fracture or dislocation. Discharge Plan Discharge Clinical Impression: Contusion of hip, Back contusion Patient Disposition: Home, Self-Care Instructions: Contusion in Adults (ED), Hip Contusion (ED) Additional Instructions: X-ray show no broken bones Ice to the area Alternate Motrin or Tylenol for pain as needed Prescriptions: No Action nitrofurantoin monohyd/m-cryst [Macrobid] 100 mg capsule 100 mg PO BID 5 Days Qty: 10 0RF clindamycin HCl 300 mg capsule 600 mg PO TID 10 Days Qty: 60 0RF ibuprofen 800 mg tablet 800 mg PO Q8H PRN (Reason: pain) Qty: 14 0RF oxycodone 5 mg tablet 5 mg PO BID PRN (Reason: pain) Qty: 10 0RF cefuroxime axetil 250 mg tablet 250 mg PO BID 7 Days Qty: 14 0RF phenazopyridine [Pyridium] 100 mg tablet 200 mg PO TID 2 Days Qty: 6 0RF ibuprofen 600 mg tablet 600 mg PO Q6H PRN (Reason: pain) Qty: 20 0RF hydrocodone-acetaminophen 5-325 mg tablet 1 tab PO Q8H PRN (Reason: pain) Qty: 7 0RF trazodone 50 mg tablet 50 mg PO BEDTIME PRN0RF clonazepam 0.5 mg tablet,disintegrating 0.5 mg PO DAILY 0RF medroxyprogesterone [Depo-Provera] 150 mg/mL suspension 150 mg IM [id number] Qty: 1 3RF Referrals: Physician,Unknown J [Primary Care Provider] - 1 week (For persistent symptoms) Interventions: ED Discharge Assessment Last Done: 08/14/21 23:46 Discharge Date/Time: 08/14/21 23:48
[2021-08-14] MEDS: Ibuprofen 600 MG TABLET PO (23:02)
== END 2021-08-14 23:48 | disposition home or self-care (01) ==
PROVIDERS: Emergency Provider Internal Medicine
DX: S70.01XA Contusion of right hip, initial encounter (principal); S30.0XXA Contusion of lower back and pelvis, initial encounter; W10.9XXA Fall (on) (from) unspecified stairs and steps, initial encounter; Z91.81 History of falling; Y93.89 Activity, other specified; Y92.039 Unspecified place in apartment as the place of occurrence of the external cause; Y99.9 Unspecified external cause status
CPT/HCPCS: 72220; 73502; 99283; 99284

== ENCOUNTER 2021-12-09 14:24 | Outpatient (REF) | payer MEDICAID, SELFPAY ==
[2021-12-10 01:20] LABS: CT PCR NOT DETECTED (Not Detect.); NG PCR NOT DETECTED (Not Detect.)
[2021-12-10 08:34] LABS: BV Int Neg Control Negative (Negative); BV Int Pos Control Positive (Positive)
== END 2021-12-09 14:25 | disposition home or self-care (01) ==
LOC: HO.LAB 14:24
PROVIDERS: Visit Provider Advanced Practice Midwife
DX: Z11.3 Encounter for screening for infections with a predominantly sexual mode of transmission (principal)
CPT/HCPCS: 87480; 87491; 87510; 87591; 87660

== ENCOUNTER 2021-12-20 17:46 | Emergency (ER) | payer MEDICAID, SELFPAY | END 2021-12-20 21:03 | disposition left against medical advice (07) | PROVIDERS: Emergency Provider Emergency Medicine | DX: H92.03 Otalgia, bilateral (principal); K13.79 Other lesions of oral mucosa ==

== ENCOUNTER 2022-07-05 16:20 | Outpatient (REF) | payer MEDICAID, SELFPAY ==
--- NOTE | ~2022-07-05 | XR_ITS ---
EXAMINATION: XR lumbar spine 2-3V, XR sacrum coccyx min 2V CLINICAL INFORMATION: Sacral back pain. Patient stated a fall a year ago. COMPARISON: CT sacrum 08/07/2021, radiographs of the sacrum 08/14/2021 and lumbosacral spine 08/01/2021. TECHNIQUE: Lumbosacral spine 4 views including spot views of the lumbosacral junction. Sacrum and coccyx 3 views. FINDINGS: Alignment of the lumbar spine, sacrum and coccyx is normal. Vertebral body and disc height is maintained. No fracture or dislocation or acute osseous abnormality seen. The sacroiliac joints are unremarkable. XR/XR lumbar spine 2-3V IMPRESSION: Unremarkable examination. No fracture or acute osseous abnormality is seen.
--- NOTE | ~2022-07-05 | XR_ITS ---
EXAMINATION: XR lumbar spine 2-3V, XR sacrum coccyx min 2V CLINICAL INFORMATION: Sacral back pain. Patient stated a fall a year ago. COMPARISON: CT sacrum 08/07/2021, radiographs of the sacrum 08/14/2021 and lumbosacral spine 08/01/2021. TECHNIQUE: Lumbosacral spine 4 views including spot views of the lumbosacral junction. Sacrum and coccyx 3 views. FINDINGS: Alignment of the lumbar spine, sacrum and coccyx is normal. Vertebral body and disc height is maintained. No fracture or dislocation or acute osseous abnormality seen. The sacroiliac joints are unremarkable. XR/XR sacrum coccyx min 2V IMPRESSION: Unremarkable examination. No fracture or acute osseous abnormality is seen.
== END 2022-07-05 16:21 | disposition home or self-care (01) ==
LOC: HO.XRAY 16:20
PROVIDERS: Visit Provider Registered Nurse
DX: M53.3 Sacrococcygeal disorders, not elsewhere classified (principal)
CPT/HCPCS: 72100; 72220

== ENCOUNTER 2022-08-24 01:54 | Emergency (ER) | payer MEDICAID, SELFPAY ==
--- NOTE | ~2022-08-24 | US_ITS ---
EXAMINATION: US PELVIS CLINICAL INFORMATION: Pelvic pain, question ovarian cyst COMPARISON: 08/07/2016 TECHNIQUE: Ultrasound of the pelvis is performed using both transabdominal and transvaginal transducers along with Doppler. Transvaginal imaging is performed due to inadequate visualization transabdominally. FINDINGS: The uterus measures 7.4 cm in length and 3.9 x 4.7 cm in AP and transverse dimensions. Endometrial stripe measures 1.4 cm in thickness. The right ovary measures 4.8 x 2.8 x 3.4 cm. There is a thick-walled, mildly complex cystic structure in the right ovary with internal septations measuring up to 4.0 cm. The left ovary measures 3.1 x 1.4 x 1.5 cm and appears unremarkable. Doppler evaluation demonstrates normal-appearing arterial and venous flow in the bilateral ovaries. Small to moderate amount of free fluid is noted. US/US pelvic and transvaginal IMPRESSION: 1. Complex cystic structure in the right ovary measuring up to 4.0 cm, probably benign and which may represent a hemorrhagic cyst. Follow-up ultrasound in 6-12 weeks is recommended to assess for resolution. 2. Small to moderate amount of nonspecific pelvic free fluid.
[2022-08-24 01:59] VITALS: BP 104/69; PULSE 93; RESP 16; TEMP 36.9; O2SAT 97; BMI 22.6
[2022-08-24 02:32] LABS: Basophils Percent Auto 0.4 % (0-2); Eosinophils Absolute Auto 0.2 X10*3/uL (0.0-0.4); Eosinophils Percent Auto 2.8 % (0-4); Hematocrit 41.9 % (37.0-47.0); Hemoglobin 13.9 g/dl (12.0-16.0); Imm Gran Abs Auto 0.01 X10*3/uL (0.00-0.03); Imm Gran Pct Auto 0.1 % (0.0-0.4); Lymphocytes Absolute Auto 2.7 X10*3/uL (1.2-4.9); Lymphocytes Percent Auto 39.9 % (20-40); MANUAL DIFF FLAG NO; Mean Corpuscular HGB Conc 33.2 g/dl (31.0-35.0); Mean Corpuscular Hemoglobin 28.7 pg (27.0-33.0); Mean Corpuscular Volume 86.6 fL (80.0-98.0); Mean Platelet Volume 10.2 fL (9.4-12.3); Monocytes Absolute Auto 0.4 X10*3/uL (0.1-1.2); Monocytes Percent Auto 5.7 % (2-11); Neutrophils Absolute Auto 3.4 x10*3/uL (2.0-8.3); Neutrophils Percent Auto 51.1 % (45-73); Platelet Count 214 X10*3/uL (160-400); Red Blood Count 4.84 X10*6/uL (4.20-5.50); Red Cell Distribution Width 12.3 % (11.0-16.0); White Blood Count 6.7 X10*3/uL (4.8-10.8)
[2022-08-24 02:33] LABS: Appearance Urine Clear; Color Urine Yellow; Glucose Urine UA Negative (Negative); Leukocyte Esterase Urine Negative (Negative); Nitrite Urine Negative (Negative); PH 5.5 (5.0-9.0); Specific Gravity - Urine >= 1.030 (1.005-1.025); Urine Blood Negative (Negative); Urine Ketones Negative (Negative); Urine Protein Negative (Neg-Trace)
[2022-08-24 02:35] LABS: UPreg QC Valid YES; Urine Pregnancy NEGATIVE (NEGATIVE)
[2022-08-24 02:53] LABS: Anion Gap 14 (12-20); Blood Urea Nitrogen 15 mg/dL (9-16); Calcium 9.2 mg/dL (8.4-10.2); Carbon Dioxide 20 mmol/L (22-29); Chloride 107 mmol/L (96-108); Creatinine Clr Calc Pharmacy 95.9; Estimated Glomerular Filt Rate > 60; Glucose Random 93 mg/dL (60-115); Potassium 4.1 mmol/L (3.3-5.1); Sodium 137 mmol/L (135-145)
[2022-08-24 03:09] LABS: Influenza A PCR NEGATIVE (Negative); Influenza B PCR NEGATIVE (Negative); Resp Syncy Virus RNA Qual PCR NEGATIVE (Negative); SARS COV2 PCR INHOUSE POSITIVE (Negative)
--- NOTE | 2022-08-24 03:20 | ED.ABDPAIN ---
HPI - Abdominal Pain General Chief Complaint: Abdominal Pain Stated Complaint: Abd pain Time Seen by Provider: 08/24/22 03:19 Source: patient Mode of arrival: ambulatory Limitations: no limitations History of Present Illness HPI narrative: Patient no significant past medical history of been having lower abdominal pain for last few hours had similar pain last week improved no nausea no vomiting pain gets worse on ambulation no history of ovarian cyst no urinary complaints no vaginal discharge Related Data Home Medications Medication Instructions Recorded Confirmed clonazepam 0.5 mg disintegrating 0.5 mg PO DAILY 09/29/20 12/09/21 tablet trazodone 50 mg tablet 50 mg PO BEDTIME PRN 09/29/20 12/09/21 Previous Rx's Medication Instructions Recorded ibuprofen 800 mg tablet 800 mg PO Q8H PRN pain #14 tabs 08/31/20 cefuroxime axetil 250 mg tablet 250 mg PO BID 7 days #14 tabs 05/29/21 ibuprofen 600 mg tablet 600 mg PO Q6H PRN pain #20 tabs 08/01/21 levonorgestrel 1.5 mg tablet (Plan 1.5 mg PO ONCE #1 tab 12/09/21 B One-Step) metronidazole 500 mg tablet 500 mg PO BID 7 days #14 tabs 12/14/21 ibuprofen 600 mg tablet 600 mg PO Q6H PRN fever or pain 08/24/22 #30 tabs Allergies Allergy/AdvReac Type Severity Reaction Status Date / Time No Known Allergies Allergy Verified 12/09/21 13:43 [No Known Allergies*] Review of Systems Review of Systems Yes all other systems are reviewed and are negative PMFSH Past Medical History Medical History Anxiety Depression No known health problems Surgical History Hx of wisdom tooth extraction Social History Social History Alcohol intake: never Patient Tobacco Use Status: Never used Tobacco Advance Directives: No Advance Directives Information Provided: No Physical Exam ED Vital Signs: Vital Signs - 24 hr 08/24/22 01:59 Temperature 98.4 F Pulse Rate 93 Respiratory Rate 16 Blood Pressure 104/69 Pulse Oximetry 97 Oxygen Delivery Method Room Air BMI result Body Mass Index 22.6 Appearance: Alert. Oriented X3. No acute distress. Eyes: PERRLA, No Nystagmus ENT: Pharynx normal. Oral Mucosa moist Neck: Normal inspection. Neck supple. CVS: Normal heart rate and rhythm. Pulses normal. Respiratory: No respiratory distress. Equal air entry bilateral, no wheezing/rales/rhonchi Abdomen: Soft , deep tenderness right suprapubic area no guarding no rebound tenderness Bowel sounds are present, no mass palpable, no CVA tenderness Skin: Skin warm and dry. Normal skin color. Normal skin turgor. Extremities: No lower extremity edema. No calf tenderness Neuro: Oriented X 3. No motor deficit. 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 08/24/22 02:27 08/24/22 02:27 Labs: Lab Results 08/24/22 08/24/22 08/24/22 Range/Units 02:17 02:19 02:20 WBC (4.8-10.8) X10*3/uL RBC (4.20-5.50) X10*6/uL Hgb (12.0-16.0) g/dl Hct (37.0-47.0) % MCV (80.0-98.0) fL MCH (27.0-33.0) pg MCHC (31.0-35.0) g/dl RDW (11.0-16.0) % Plt Count (160-400) X10*3/uL MPV (9.4-12.3) fL Immature Gran % (Auto) (0.0-0.4) % Neut % (Auto) (45-73) % Lymph % (Auto) (20-40) % [place] % (Auto) (2-11) % Eos % (Auto) (0-4) % Baso % (Auto) (0-2) % Lymph # (Auto) (1.2-4.9) X10*3/uL [place] # (Auto) (0.1-1.2) X10*3/uL Eos # (Auto) (0.0-0.4) X10*3/uL Baso # (Auto) (0.0-0.2) X10*3/uL Abs Immat Gran (auto) (0.00-0.03) X10*3/uL Absolute Neuts (auto) (2.0-8.3) x10*3/uL Absolute Nucleated RBC (0.0-0.012) X10*3/uL Nucleated RBC % (auto) (0.0-0.2) /100WBC Sodium (135-145) mmol/L Potassium (3.3-5.1) mmol/L Chloride (96-108) mmol/L Carbon Dioxide (22-29) mmol/L Anion Gap (12-20) BUN (9-16) mg/dL Creatinine (0.5-1.4) mg/dL Estim Creat Clear Calc Estimated GFR Random Glucose (60-115) mg/dL Calcium (8.4-10.2) mg/dL Urine Color Yellow Urine Appearance Clear Urine pH 5.5 (5.0-9.0) Ur Specific [place] >= 1.030 H (1.005-1.025) Urine Protein Negative (Neg-Trace) mg/dL Urine Glucose (UA) Negative (Negative) mg/dL Urine Ketones Negative (Negative) mg/dL Urine Blood Negative (Negative) Urine Nitrite Negative (Negative) Ur Leukocyte Esterase Negative (Negative) Urine Test NEGATIVE (NEGATIVE) Influenza Type A (PCR) NEGATIVE (Negative) Influenza Type B (PCR) NEGATIVE (Negative) RSV RNA Qual (PCR) NEGATIVE (Negative) SARS-CoV-2 RNA (RT-PCR) POSITIVE A (Negative) 08/24/22 08/24/22 Range/Units 02:27 02:27 WBC 6.7 (4.8-10.8) X10*3/uL RBC 4.84 (4.20-5.50) X10*6/uL Hgb 13.9 (12.0-16.0) g/dl Hct 41.9 (37.0-47.0) % MCV 86.6 (80.0-98.0) fL MCH 28.7 (27.0-33.0) pg MCHC 33.2 (31.0-35.0) g/dl RDW 12.3 (11.0-16.0) % Plt Count 214 (160-400) X10*3/uL MPV 10.2 (9.4-12.3) fL Immature Gran % (Auto) 0.1 (0.0-0.4) % Neut % (Auto) 51.1 (45-73) % Lymph % (Auto) 39.9 (20-40) % [place] % (Auto) 5.7 (2-11) % Eos % (Auto) 2.8 (0-4) % Baso % (Auto) 0.4 (0-2) % Lymph # (Auto) 2.7 (1.2-4.9) X10*3/uL [place] # (Auto) 0.4 (0.1-1.2) X10*3/uL Eos # (Auto) 0.2 (0.0-0.4) X10*3/uL Baso # (Auto) 0.0 (0.0-0.2) X10*3/uL Abs Immat Gran (auto) 0.01 (0.00-0.03) X10*3/uL Absolute Neuts (auto) 3.4 (2.0-8.3) x10*3/uL Absolute Nucleated RBC 0.000 (0.0-0.012) X10*3/uL Nucleated RBC % (auto) 0.0 (0.0-0.2) /100WBC Sodium 137 (135-145) mmol/L Potassium 4.1 (3.3-5.1) mmol/L Chloride 107 (96-108) mmol/L Carbon Dioxide 20 L (22-29) mmol/L Anion Gap 14 (12-20) BUN 15 (9-16) mg/dL Creatinine 0.59 (0.5-1.4) mg/dL Estim Creat Clear Calc 95.9 Estimated GFR > 60 Random Glucose 93 (60-115) mg/dL Calcium 9.2 (8.4-10.2) mg/dL Urine Color Urine Appearance Urine pH (5.0-9.0) Ur Specific [place] (1.005-1.025) Urine Protein (Neg-Trace) mg/dL Urine Glucose (UA) (Negative) mg/dL Urine Ketones (Negative) mg/dL Urine Blood (Negative) Urine Nitrite (Negative) Ur Leukocyte Esterase (Negative) Urine Test (NEGATIVE) Influenza Type A (PCR) (Negative) Influenza Type B (PCR) (Negative) RSV RNA Qual (PCR) (Negative) SARS-CoV-2 RNA (RT-PCR) (Negative) Medications Administered Discontinued Medications Generic Name Dose Route Start Last Admin Trade Name Freq PRN Reason Stop Dose Admin Ibuprofen 600 mg 08/24/22 03:50 08/24/22 03:55 Ibuprofen 600 Mg Tablet PO 08/24/22 03:51 600 mg ONCE ONE Administration Discharge Plan Discharge Clinical Impression: Ovarian cyst Patient Disposition: Home, Self-Care Instructions: Ovarian Cyst (ED) Additional Instructions: Ibuprofen for pain 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 for repeat ultrasound in 2 months Prescriptions: New ibuprofen 600 mg tablet 600 mg PO Q6H PRN (Reason: fever or pain) Qty: 30 0RF No Action metronidazole 500 mg tablet 500 mg PO BID 7 Days Qty: 14 0RF Rx Instructions: Take with food, Avoid alcohol and vinegar products ibuprofen 800 mg tablet 800 mg PO Q8H PRN (Reason: pain) Qty: 14 0RF cefuroxime axetil 250 mg tablet 250 mg PO BID 7 Days Qty: 14 0RF ibuprofen 600 mg tablet 600 mg PO Q6H PRN (Reason: pain) Qty: 20 0RF trazodone 50 mg tablet 50 mg PO BEDTIME PRN clonazepam 0.5 mg tablet,disintegrating 0.5 mg PO DAILY levonorgestrel [Plan B One-Step] 1.5 mg tablet 1.5 mg PO ONCE Qty: 1 4RF Rx Instructions: P.r.n. for plan a failure Referrals: Fer Albright MD [Physician] - 2 weeks Stand Alone Forms: Work/School Release
[2022-08-24] MEDS: Ibuprofen 600 MG TABLET PO (03:55)
[2022-08-24 06:30] VITALS: BP 109/74; PULSE 80; RESP 17; TEMP 36.6; O2SAT 96
--- NOTE | 2022-08-24 06:33 | PC.NURSE ---
pt assessed and discharged by provider, discharge instruction given and reviewed.
== END 2022-08-24 06:34 | disposition home or self-care (01) ==
PROVIDERS: Emergency Provider Internal Medicine
DX: U07.1 COVID-19 (principal); N83.291 Other ovarian cyst, right side
CPT/HCPCS: 0241U; 36415; 76830; 76856; 80048; 81003; 81025; 85025; 99283; 99284

== ENCOUNTER 2022-10-11 16:40 | Outpatient (REF) | payer MEDICAID, SELFPAY ==
[2022-10-11 16:57] LABS: MANUAL DIFF FLAG NO
[2022-10-11 18:13] LABS: Basophils Percent Auto 0.7 % (0-2); Eosinophils Absolute Auto 0.1 X10*3/uL (0.0-0.4); Eosinophils Percent Auto 1.2 % (0-4); Hematocrit 38.3 % (37.0-47.0); Imm Gran Abs Auto 0.01 X10*3/uL (0.00-0.03); Imm Gran Pct Auto 0.2 % (0.0-0.4); Lymphocytes Absolute Auto 2.7 X10*3/uL (1.2-4.9); Lymphocytes Percent Auto 45.7 % (20-40); Mean Corpuscular HGB Conc 33.9 g/dl (31.0-35.0); Mean Corpuscular Hemoglobin 29.3 pg (27.0-33.0); Mean Corpuscular Volume 86.5 fL (80.0-98.0); Mean Platelet Volume 10.9 fL (9.4-12.3); Monocytes Absolute Auto 0.3 X10*3/uL (0.1-1.2); Monocytes Percent Auto 5.7 % (2-11); Neutrophils Absolute Auto 2.7 x10*3/uL (2.0-8.3); Neutrophils Percent Auto 46.5 % (45-73); Platelet Count 237 X10*3/uL (160-400); Red Blood Count 4.43 X10*6/uL (4.20-5.50); White Blood Count 5.8 X10*3/uL (4.8-10.8)
[2022-10-11 18:34] LABS: Blood Urea Nitrogen 11 mg/dL (9-16); Estimated Glomerular Filt Rate > 60; Lipase 57 U/L (8-78)
[2022-10-11 18:43] LABS: Amylase 70 U/L (28-100)
== END 2022-10-11 16:41 | disposition home or self-care (01) ==
LOC: HO.LAB 16:40
PROVIDERS: Visit Provider Emergency Medicine
DX: R10.32 Left lower quadrant pain (principal); K57.30 Diverticulosis of large intestine without perforation or abscess without bleeding
CPT/HCPCS: 36415; 82150; 82565; 83690; 84520; 85025

== ENCOUNTER 2022-12-13 13:48 | Outpatient (REF) | payer MEDICAID, SELFPAY ==
[2022-12-14 05:28] LABS: CT PCR NOT DETECTED (Not Detect.); NG PCR NOT DETECTED (Not Detect.)
[2022-12-14 13:06] LABS: BV Int Neg Control Negative (Negative); BV Int Pos Control Positive (Positive)
== END 2022-12-13 13:49 | disposition home or self-care (01) ==
LOC: HO.LNP 13:48
PROVIDERS: Visit Provider Advanced Practice Midwife
DX: Z30.09 Encounter for other general counseling and advice on contraception (principal); Z20.2 Contact with and (suspected) exposure to infections with a predominantly sexual mode of transmission
CPT/HCPCS: 0353U; 81025; 87480; 87510; 87660

== ENCOUNTER 2023-03-22 16:48 | Emergency (ER) | payer MEDICAID, SELFPAY ==
[2023-03-22 17:15] VITALS: BP 97/66; PULSE 88; RESP 16; TEMP 36.5; BMI 23.6
--- NOTE | 2023-03-22 17:16 | ED_ITS ---
HPI - Female Genitourinary General Chief complaint: Vaginal Bleeding Stated complaint: , bleeding. unsure how long in she is Related Data Home Medications Medication Instructions Recorded Confirmed clonazepam 0.5 mg disintegrating 0.5 mg PO DAILY 09/29/20 12/13/22 tablet trazodone 50 mg tablet 50 mg PO BEDTIME PRN 09/29/20 12/13/22 Previous Rx's Medication Instructions Recorded ibuprofen 800 mg tablet 800 mg PO Q8H PRN pain #14 tabs 08/31/20 cefuroxime axetil 250 mg tablet 250 mg PO BID 7 days #14 tabs 05/29/21 ibuprofen 600 mg tablet 600 mg PO Q6H PRN pain #20 tabs 08/01/21 ibuprofen 600 mg tablet 600 mg PO Q6H PRN fever or pain 08/24/22 #30 tabs desogestrel-e.estradiol 0.15 1 tab PO DAILY #84 tabs 12/13/22 mg-0.02 mg(21)/e.estrad 0.01 mg(5) tablet ulipristal 30 mg tablet (Jackie) 30 mg PO ONCE #1 tab 12/13/22 Allergies Allergy/AdvReac Type Severity Reaction Status Date / Time No Known Allergies Allergy Verified 03/22/23 17:21 [No Known Allergies*] [facility] Past Medical History Medical History Anxiety Depression No known health problems Surgical History Hx of wisdom tooth extraction Family History Family History (Updated 12/13/22 @ 13:56 by Cnithya Lawson CMA) Maternal Grandfather Pancreatic cancer Social History Social History Alcohol intake: never Patient Tobacco Use Status: Never used Tobacco Advance Directives: No Advance Directives Information Provided: No Physical Exam Vital Signs: Vital Signs: Last Vital Signs Temp 97.7 F 03/22/23 17:15 Pulse 88 03/22/23 17:15 Resp 16 03/22/23 17:15 BP 97/66 03/22/23 17:15 O2 Del Method Room Air 03/22/23 17:15 BMI result Body Mass Index 23.6 Course Course Course Narrative: RME: 27yo F w/+ test 1 week ago at home now w/bright red vaginal bleeding since yesterday afternoon w/clots. Using 2 pads a day. Admits to abd pain. No care yet. LMP in December Abdomen soft w/b/l lower ttp, no rebound or guarding Labs, UA, RH, OB US ordered Full HPI, ROS and PE to be performed by primary ED provider. Discharge Plan Discharge Clinical Impression: Vaginal bleeding Patient Disposition: Elopement Prescriptions: No Action ibuprofen 800 mg tablet 800 mg PO Q8H PRN (Reason: pain) Qty: 14 0RF ibuprofen 600 mg tablet 600 mg PO Q6H PRN (Reason: fever or pain) Qty: 30 0RF cefuroxime axetil 250 mg tablet 250 mg PO BID 7 Days Qty: 14 0RF ibuprofen 600 mg tablet 600 mg PO Q6H PRN (Reason: pain) Qty: 20 0RF trazodone 50 mg tablet 50 mg PO BEDTIME PRN clonazepam 0.5 mg tablet,disintegrating 0.5 mg PO DAILY Jakcie 30 mg tablet 30 mg PO ONCE Qty: 1 3RF desog-e.estradiol/e.estradiol 0.15-0.02 mgx21 /0.01 mg x 5 tablet 1 tab PO DAILY Qty: 84 4RF Rx Instructions: Start at least 5 days after taking other medication and preferably with the 1st day of your next period Discharge Date/Time: 03/22/23 19:40
== END 2023-03-22 19:40 | disposition left against medical advice (07) ==
PROVIDERS: Emergency Provider Emergency Medicine
DX: N93.9 Abnormal uterine and vaginal bleeding, unspecified (principal); Z79.899 Other long term (current) drug therapy
CPT/HCPCS: 99281

== ENCOUNTER 2023-09-23 16:52 | Emergency (ER) | payer MEDICAID, SELFPAY ==
[2023-09-23 17:23] VITALS: BP 111/78; PULSE 72; RESP 18; TEMP 36.7; O2SAT 98; BMI 26.5
--- NOTE | 2023-09-23 17:24 | ED_ITS ---
HPI - Eye Problem General Chief complaint: Eye Problems Stated complaint: right eye inj Time Seen by Provider: 09/23/23 17:44 Source: patient Mode of arrival: ambulatory Limitations: no limitations History of Present Illness HPI Narrative: 28-year-old female with no significant past medical history presents emergency department after sustaining an injury to the right eye while at work. She reports she was working with a friend when she accidentally was hit in the right orbit causing initial blurred vision to the right eye which she reports has since resolved. She reports tenderness to palpation at the eyebrow with no complaints of swelling or ecchymosis. Pertinent positives and negatives discussed in HPI Related Data Home Medications Medication Instructions Recorded Confirmed clonazepam 0.5 mg disintegrating 0.5 mg PO DAILY 09/29/20 12/13/22 tablet trazodone 50 mg tablet 50 mg PO BEDTIME PRN 09/29/20 12/13/22 Previous Rx's Medication Instructions Recorded ibuprofen 800 mg tablet 800 mg PO Q8H PRN pain #14 tabs 08/31/20 cefuroxime axetil 250 mg tablet 250 mg PO BID 7 days #14 tabs 05/29/21 ibuprofen 600 mg tablet 600 mg PO Q6H PRN pain #20 tabs 08/01/21 ibuprofen 600 mg tablet 600 mg PO Q6H PRN fever or pain 08/24/22 #30 tabs desogestrel-e.estradiol 0.15 1 tab PO DAILY #84 tabs 12/13/22 mg-0.02 mg(21)/e.estrad 0.01 mg(5) tablet ulipristal 30 mg tablet (Jackie) 30 mg PO ONCE #1 tab 12/13/22 Allergies Allergy/AdvReac Type Severity Reaction Status Date / Time No Known Allergies Allergy Verified 03/22/23 17:21 [No Known Allergies*] Review of Systems Review of Systems: Yes all other systems are reviewed and are negative [facility] Past Medical History Medical History Anxiety Depression No known health problems Surgical History Hx of wisdom tooth extraction Family History Family History (Updated 12/13/22 @ 13:56 by Cinthya Lawson CMA) Maternal Grandfather Pancreatic cancer Social History Social History Alcohol intake: never Patient Tobacco Use Status: Never used Tobacco Advance Directives: No Advance Directives Information Provided: No Physical Exam Vital Signs: Vital Signs: Last Vital Signs Temp 98 F 09/23/23 18:21 Pulse 70 09/23/23 18:21 Resp 18 09/23/23 18:21 BP 112/76 09/23/23 18:21 Pulse Ox 98 09/23/23 18:21 O2 Del Method Room Air 09/23/23 18:21 BMI result Body Mass Index 26.5 Nursing notes and vital signs reviewed. GENERAL APPEARANCE: A&0 x 4, generally well appearing, no acute distress HENMT: Normal to inspection, atraumatic, face symmetrical. Normal external ears, nose, and oropharynx clear. EYE: PERRLA, EOM intact, structures appear normal. Vision acuity test 20/20. Tenderness to palpation at right upper orbit /eyebrow NECK: Supple without stiffness or restricted ROM. HEART: Normal rate and regular rhythm, normal S1/S2, no M/R/G LUNGS: LS CTA, moving air well. Able to speak in complete sentences. No c rackles, wheezes, or rhonchi auscultated BACK: No CVAT, no obvious deformity EXTREMITIES: Moving all extremities without difficulty. Normal capillary refill. NEUROLOGICAL: Alert and oriented, moving all 4 extremities with equal strength. CN not formally tested but appearing grossly intact. Observed to ambulate with normal gait. Cognition normal SKIN: Warm and dry without any lesions, rash, or visible sores Course Course Course Narrative: Patient complains of right eye pain after accidentally being elbowed in the eye at work today Denies vision loss this is rapid medical exam done in triage spinning full evaluation and dispo by your provider Medications Administered Discontinued Medications Generic Name Dose Route Start Last Admin Trade Name Freq PRN Reason Stop Dose Admin Fluorescein Sodium 1 strip 09/23/23 17:44 09/23/23 17:51 Fluorescein Sodium Strip EYE-RIGHT 09/23/23 17:45 1 strip ONCE ONE Administration Tetracaine HCl 1 drop 09/23/23 17:44 09/23/23 17:51 Tetracaine Hcl/Pf 0.5% Oph Mary 4 Ml Drops EYE-LEFT 09/23/23 17:45 1 drop ONCE ONE Administration Medical Decision Making Medical Decision Making MDM Narrative: Old records reviewed for previous imaging, lab studies, ECGs, and notes. Patient was assessed the emergency department with no acute distress or toxicity noted. patient's symptoms consistent with an acute contusion secondary to physical trauma With low suspicion for corneal abrasion is patient denies any foreign body sensation or discharge from the eye. Patient denies any vision disturbances or headache at this time. Patient educated to follow-up with ophthalmology if symptoms recur or for any other concerning symptoms. Patient is safe for discharge at this time with plan for [id number] Tylenol and/or NSAID such as ibuprofen or naproxen for fever/discomfort with dosing as per packaging. HPI, PE, diagnostics, and plan discussed with patient and family with no unanswered questions at this time. Strict return precautions given to return to the emergency department with new, worsening, or concerning emergent symptoms. Recommended to follow-up with there primary care provider in 24-48 hours for further treatment and management. Differential Diagnosis Differential Diagnoses: The differential diagnosis associated with the presentation includes but not limited to contusion, globe rupture, corneal abrasion, glaucoma, iritis, uveitis, conjunctivitis Discharge Plan Discharge Clinical Impression: Contusion of right orbit Patient Disposition: Home, Self-Care Instructions: Black Eye (ED), Contusion in Adults (ED) Additional Instructions: Your seen in the emergency department for concerns of injury to your eye. Your symptoms appear consistent with contusion, otherwise noted a bruise. Your visual acuity test was unremarkable showing no issues with her vision at this time. Please follow-up with your eye doctor with any other concerns. You are safe for discharge at this time with plan for management of fever or discomfort with [id number] Tylenol and/or NSAID such as ibuprofen or naproxen with dosing as per packaging. Please return to the emergency department with new, worsening, or concerning emergent symptoms. Recommended to follow-up with your primary care provider in 24-48 hours for further treatment and management. Thank you for choosing [facility]. Prescriptions: No Action ibuprofen 800 mg tablet 800 mg PO Q8H PRN (Reason: pain) Qty: 14 0RF ibuprofen 600 mg tablet 600 mg PO Q6H PRN (Reason: fever or pain) Qty: 30 0RF cefuroxime axetil 250 mg tablet 250 mg PO BID 7 Days Qty: 14 0RF ibuprofen 600 mg tablet 600 mg PO Q6H PRN (Reason: pain) Qty: 20 0RF trazodone 50 mg tablet 50 mg PO BEDTIME PRN clonazepam 0.5 mg tablet,disintegrating 0.5 mg PO DAILY Jackie 30 mg tablet 30 mg PO ONCE Qty: 1 3RF desog-e.estradiol/e.estradiol 0.15-0.02 mgx21 /0.01 mg x 5 tablet 1 tab PO DAILY Qty: 84 4RF Rx Instructions: Start at least 5 days after taking other medication and preferably with the 1st day of your next period Referrals: [place] [Primary Care Provider] - Stand Alone Forms: Work/School Release Interventions: ED Discharge Assessment Last Done: 09/23/23 18:21 Print Language: Russian
[2023-09-23] MEDS: Tetracaine HCl/PF 0.5% Oph Sol 4 ML DROPS 1 DROP EYE-LEFT (17:51)
[2023-09-23] MEDS: Fluorescein Sodium STRIP 1 STRIP EYE-RIGHT (17:51)
[2023-09-23 18:21] VITALS: BP 112/76; PULSE 70; RESP 18; TEMP 36.6; O2SAT 98
== END 2023-09-23 18:51 | disposition home or self-care (01) ==
PROVIDERS: Emergency Provider Emergency Medicine Emergency Medical Services
DX: S05.11XA Contusion of eyeball and orbital tissues, right eye, initial encounter (principal); W50.0XXA Accidental hit or strike by another person, initial encounter; Y93.9 Activity, unspecified; Y92.89 Other specified places as the place of occurrence of the external cause; Y99.0 Civilian activity done for income or pay
CPT/HCPCS: 99282; 99283

== ENCOUNTER 2023-12-05 19:09 | Outpatient (REF) | payer MEDICAID, SELFPAY ==
[2023-12-08 04:44] LABS: HPV mRNA E6/E7 rflx Not Detected (Not Detected)
[2023-12-09 10:54] LABS: C. trachomatis RNA TMA NOT DETECTED (NOT DETECTED); N. gonorrhoeae RNA TMA NOT DETECTED (NOT DETECTED)
[2023-12-09 12:28] LABS: Trichomonas (NAAT) NOT DETECTED (NOT DETECTED)
== END 2023-12-05 19:10 | disposition home or self-care (01) ==
LOC: HO.HHCLNP 19:09
PROVIDERS: Visit Provider Advanced Practice Midwife
DX: Z12.4 Encounter for screening for malignant neoplasm of cervix (principal); Z11.3 Encounter for screening for infections with a predominantly sexual mode of transmission
CPT/HCPCS: 87491; 87591; 87624; 87661; 88142

== ENCOUNTER 2023-12-06 11:51 | Outpatient (REF) | payer MEDICAID, SELFPAY ==
[2023-12-06 13:42] LABS: Hematocrit 42.4 % (37.0-47.0); Hemoglobin 13.9 g/dl (12.0-16.0); Mean Corpuscular HGB Conc 32.8 g/dl (31.0-35.0); Mean Corpuscular Hemoglobin 28.1 pg (27.0-33.0); Mean Corpuscular Volume 85.8 fL (80.0-98.0); Mean Platelet Volume 9.8 fL (9.4-12.3); Platelet Count 268 X10*3/uL (160-400); Red Blood Count 4.94 X10*6/uL (4.20-5.50); Red Cell Distribution Width 12.5 % (11.0-16.0); White Blood Count 5.9 X10*3/uL (4.8-10.8)
[2023-12-06 13:51] LABS: Estimated Average Glucose 97 mg/dL
[2023-12-06 14:00] LABS: Alanine Aminotransferase 15 U/L (0-31); Albumin Level 4.2 g/dL (3.5-5.0); Alkaline Phosphatase 88 U/L (39-117); Anion Gap 12 (12-20); Aspartate Amino Transferase 17 U/L (5-31); Bilirubin Total 0.6 mg/dL (0.0-1.0); Blood Urea Nitrogen 11 mg/dL (9-16); Calcium 9.5 mg/dL (8.4-10.2); Carbon Dioxide 24 mmol/L (22-29); Chloride 104 mmol/L (96-108); Estimated Glomerular Filt Rate > 60; Glucose Random 82 mg/dL (60-115); Potassium 3.8 mmol/L (3.3-5.1); Sodium 136 mmol/L (135-145)
[2023-12-06 14:12] LABS: Syphilis Screen Nonreactive (Nonreactive)
[2023-12-06 14:18] LABS: TSH reflex Free T4 1.08 uIU/mL (0.32-4.0)
[2023-12-06 14:54] LABS: CT PCR NOT DETECTED (Not Detect.); NG PCR NOT DETECTED (Not Detect.)
[2023-12-07 08:05] LABS: HBS Num1 1.76 mIU/mL (0-7.99); HBsAGNum1 0.38 S/CO (0.00-0.99); HIV AB/AG Nonreactive (Nonreactive); HIV Num 1 0.09 S/CO (0.00-0.99); Hepatitis B Core Antibody Nonreactive (Nonreactive); Hepatitis B Surface Antigen Negative (Negative); ~HepC Num1 0.15 S/CO (0.00-0.79); ~Hepatitis B Surface Antibody NONREACTIVE (Nonreactive); ~Hepatitis C Antibody Nonreactive (Nonreactive)
== END 2023-12-06 11:52 | disposition home or self-care (01) ==
LOC: HO.HHCL 11:51
PROVIDERS: Visit Provider Student in an Organized Health Care Education/Training Program
DX: Z00.00 Encounter for general adult medical examination without abnormal findings (principal)
CPT/HCPCS: 0353U; 36415; 80053; 83036; 84443; 85027; 86704; 86706; 86780; 86803; 87340; 87389

== ENCOUNTER 2024-10-24 16:10 | Emergency (ER) | payer MEDICAID, SELFPAY ==
--- NOTE | ~2024-10-24 | US_ITS ---
CLINICAL HISTORY: pelvic pain. torsion? cysts US pelvis transabdominal and transvaginal Comparison: None Findings: Transabdominal scanning performed for overall anatomy. Transvaginal scanning performed for additional detail. Anteverted and anteflexed uterus is 8.1 cm length. Portions of the uterus obscured by side of the artifacts. Imaged endometrium measures 5 mm thickness. Portions of the endometrium are obscured. Small amount of fluid in the imaged endometrium is nonspecific (image 39). No significant free fluid in the imaged pelvis. Small follicles noted in both ovaries. Right ovary 2.3 x 2.2 x 1.5 cm. Left ovary 2.5 x 1.9 x 1.8 cm. Doppler: Doppler arterial waveform of the left ovary demonstrates peak systolic velocity of the 12 cm/sec and resistive index of 0.5. Doppler arterial waveform of the right ovary demonstrates peak systolic velocity of the 6 cm/sec and resistive index of 0.5. IMPRESSION: 1. No ultrasound findings of ovarian torsion. 2. Small amount of fluid is in the nonenlarged endometrium, with nonuniformity of the endometrium. Please consider follow-up in 6 or 10 weeks to ensure normalization of the endometrium. This document has been electronically signed by: Dennis Mendez MD on 10/24/2024 20:12:53
[2024-10-24 17:00] VITALS: BP 107/77; PULSE 74; RESP 16; TEMP 36.9; O2SAT 100; BMI 46.9
--- NOTE | 2024-10-24 17:27 | ED_ITS ---
HPI - General Adult General Chief complaint: Abdominal Pain Stated complaint: abd pain Time Seen by Provider: 10/24/24 20:05 Source: patient Limitations: no limitations History of Present Illness ED Provider: Suki Davenport PA-C HPI narrative: 29-year-old female presents with lower abdominal pain. 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 She recently helped to transfer an obese patient. Pain over lower abdomen worse on the left, described as cramping, achiness at times. Pain worse with the movement and walking. Associated low back pain. Patient had an episode of sharp left lower quadrant discomfort that radiated into her thighs earlier today. Denies dysuria, hematuria, history of kidney stones. Denies history of ovarian cysts, abnormal vaginal discharge or risk for STD. Denies nausea vomiting diarrhea or fever. The pain has improved on its own. Related Data Home Medications ?Medication ?Instructions ?Recorded ?Confirmed clonazepam 0.5 mg disintegrating 0.5 mg PO DAILY 09/29/20 12/13/22 tablet trazodone 50 mg tablet 50 mg PO BEDTIME PRN 09/29/20 12/13/22 Previous Rx's ?Medication ?Instructions ?Recorded ibuprofen 800 mg tablet 800 mg PO Q8H PRN pain #14 tabs 08/31/20 cefuroxime axetil 250 mg tablet 250 mg PO BID 7 days #14 tabs 05/29/21 ibuprofen 600 mg tablet 600 mg PO Q6H PRN pain #20 tabs 08/01/21 ibuprofen 600 mg tablet 600 mg PO Q6H PRN fever or pain 08/24/22 #30 tabs desogestrel-e.estradiol 0.15 1 tab PO DAILY #84 tabs 12/13/22 mg-0.02 mg(21)/e.estrad 0.01 mg(5) tablet ulipristal 30 mg tablet (Jackie) 30 mg PO ONCE #1 tab 12/13/22 ibuprofen 600 mg tablet 600 mg PO Q6H PRN pain #20 tabs 10/24/24 Allergies Allergy/AdvReac Type Severity Reaction Status Date / Time No Known Allergies Allergy Verified 10/24/24 17:01 [No Known Allergies*] Review of Systems 2 Review of Systems: Yes all other systems are reviewed and are negative Constitutional: Constitutional: Denies fatigue and Denies fever(s) Cardiovascular: Cardiovascular: Denies chest pain and Denies dyspnea Respiratory: Respiratory: Denies cough and Denies dyspnea Gastrointestinal: Gastrointestinal: Reports abdominal pain, Denies constipation, Denies diarrhea, Denies nausea and Denies vomiting Genitourinary: Genitourinary: Denies hematuria, Denies dysuria, Denies pelvic pain and Denies vaginal discharge Musculoskeletal: Musculoskeletal: Reports back pain Endocrine: Endocrine: Denies fatigue [facility] Past Medical History Attestation statement: The following information was validated with the patient. Medical History Anxiety Depression No known health problems Surgical History Hx of wisdom tooth extraction Family History Family History (Updated 12/13/22 @ 13:56 by Cinthya Lawson CMA) Maternal Grandfather Pancreatic cancer Social History Social History Alcohol intake: never Patient Tobacco Use Status: Never used Tobacco Smoked in Last 30 Days: No Use of substances other than those prescribed or required for medical reasons: No Advance Directives: No Advance Directives Information Provided: No Do you have a plan to hurt others: No Plan Patient : No Physical Exam ED Vital Signs: Vital Signs - 24 hr 10/24/24 17:00 10/24/24 20:57 10/24/24 22:04 Temperature 98.5 F 97.9 F 98.8 F Pulse Rate 74 84 74 Respiratory Rate 16 16 16 Blood Pressure 107/77 118/80 118/86 Pulse Oximetry 100 100 98 Oxygen Delivery Method Room Air Room Air Room Air 10/24/24 22:16 Temperature 98.8 F Pulse Rate 74 Respiratory Rate 16 Blood Pressure 118/86 Pulse Oximetry 98 Oxygen Delivery Method Room Air BMI result Body Mass Index 46.9 Const Other: Alert well-appearing Orientation/consciousness: patient oriented x3 Resp Effort & Inspection: normal respiratory effort Cardio Other: Normal peripheral perfusion GI Other: Abdomen is soft, nontender no guarding nondistended Other: Deferred given transvaginal ultrasound already completed Skin Other: Warm dry no rash Neuro General: patient oriented x3, gait normal, no focal motor deficits and CN's II- XI intact bilaterally Psych Other: Cooperative Course Course Course Narrative: RME: 29 yold female presents to the ED For sudden left pelvic pain that began during class. Patient denies any genitourinary symptoms or flank pain. Patient denies any nausea or vomiting. Labs UA ordered. Medications Administered Discontinued Medications Generic Name Dose Route Start Last Admin Trade Name Kevin PRN Reason Stop Dose Admin Ibuprofen 600 mg 10/24/24 21:10 10/24/24 21:27 Ibuprofen 600 Mg Tablet PO 10/24/24 21:11 600 mg ONCE ONE Administration Medical Decision Making Medical Decision Making [facility] Narrative: 29-year-old female presents with lower abdominal pain. 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 She recently helped to transfer an obese patient. Pain over lower abdomen worse on the left, described as cramping, achiness at times. Pain worse with the movement and walking. Associated low back pain. Patient had an episode of sharp left lower quadrant discomfort that radiated into her thighs earlier today. Denies dysuria, hematuria, history of kidney stones. Denies history of ovarian cysts, abnormal vaginal discharge or risk for STD. Denies nausea vomiting diarrhea or fever. The pain has improved on its own. No chronic issues History: Per patient I have considered the following differential diagnosis: UTI, renal colic, torsion, TOA, diverticulitis, abdominal wall strain Plan: Screening labs including urinalysis and transvaginal ultrasound were obtained from triage. Everything is unremarkable. She has some trace fluid in the uterus, she also has a 4 cm right ovarian cyst, the recommendation is for repeat transvaginal ultrasound as an outpatient 6-12 wks. . Fluid could be could be her menstrual cycle. The patient has no active GI symptoms, her exam was benign, CT not indicated. We will send with return precautions. We will treat with ibuprofen. Patient was in agreement with the plan. I have independently reviewed the following tests: Labs: No leukocytosis, not anemic, no electrolyte abnormality, not , urine not infected Transvaginal ultrasound: US/US pelvic and transvaginal IMPRESSION: 1. Complex cystic structure in the right ovary measuring up to 4.0 cm, probably benign and which may represent a hemorrhagic cyst. Follow-up ultrasound in 6-12 weeks is recommended to assess for resolution. 2. Small to moderate amount of nonspecific pelvic free fluid. IMPRESSION: 1. No ultrasound findings of ovarian torsion. 2. Small amount of fluid is in the nonenlarged endometrium, with nonuniformity of the endometrium. Please consider follow-up in 6 or 10 weeks to ensure normalization of the endometrium. Lab Data 10/24/24 17:26 10/24/24 17:26 Labs: Lab Results 10/24/24 10/24/24 Range/Units 17:21 17:26 WBC 7.2 (4.8-10.8) X10*3/uL RBC 4.94 (4.20-5.50) X10*6/uL Hgb 13.7 (12.0-16.0) g/dl Hct 41.9 (37.0-47.0) % MCV 84.8 (80.0-98.0) fL MCH 27.7 (27.0-33.0) pg MCHC 32.7 (31.0-35.0) g/dl RDW 12.8 (11.0-16.0) % Plt Count 239 (160-400) X10*3/uL MPV 10.1 (9.4-12.3) fL Immature Gran % (Auto) 0.1 (0.0-0.4) % Neut % (Auto) 62.5 (45-73) % Lymph % (Auto) 30.5 (20-40) % Crook % (Auto) 5.0 (2-11) % Eos % (Auto) 1.5 (0-4) % Baso % (Auto) 0.4 (0-2) % Lymph # (Auto) 2.2 (1.2-4.9) X10*3/uL Crook # (Auto) 0.4 (0.1-1.2) X10*3/uL Eos # (Auto) 0.1 (0.0-0.4) X10*3/uL Baso # (Auto) 0.0 (0.0-0.2) X10*3/uL Abs Immat Gran (auto) 0.01 (0.00-0.03) X10*3/uL Absolute Neuts (auto) 4.5 (2.0-8.3) x10*3/uL Absolute Nucleated RBC 0.000 (0.0-0.012) X10*3/uL Nucleated RBC % (auto) 0.0 (0.0-0.2) /100WBC Sodium 141 (135-145) mmol/L Potassium 3.9 (3.3-5.1) mmol/L Chloride 112 H (96-108) mmol/L Carbon Dioxide 22 (22-29) mmol/L Anion Gap 11 L (12-20) BUN 10 (9-16) mg/dL Creatinine 0.65 (0.5-1.4) mg/dL Estim Creat Clear Calc 134.6 Estimated GFR > 60 Random Glucose 85 (60-115) mg/dL Calcium 9.2 (8.4-10.2) mg/dL Total Bilirubin 0.4 (0.0-1.0) mg/dL AST 27 (5-31) U/L ALT 44 H (0-31) U/L Alkaline Phosphatase 102 (39-117) U/L Total Protein 7.7 (6.5-8.0) g/dL Albumin 4.0 (3.5-5.0) g/dL Beta HCG, Quant < 2 mIU/mL Urine Color Yellow Urine Appearance Cloudy Urine pH 8.5 (5.0-9.0) Ur Specific Phe[place] 1.025 (1.005-1.025) Urine Protein Negative (Neg-Trace) mg/dL Urine Glucose (UA) Negative (Negative) mg/dL Urine Ketones Negative (Negative) mg/dL Urine Blood Negative (Negative) Urine Nitrite Negative (Negative) Ur Leukocyte Esterase Negative (Negative) Discharge Plan Discharge Clinical Impression: Cyst of right ovary Patient Disposition: Home, Self-Care Instructions: Ovarian Cyst (ED) Additional Instructions: All of your labs were normal, your urine is not infected you are not . The ultrasound revealed that you have a right-sided 4 cm ovarian cyst. The recommendation is that you have a repeat transvaginal ultrasound in 6-12 weeks. Call tomorrow to make that appointment. In addition, return precautions for onset of severe abdominal pain. If you develop this, return for medical assessment. Take the ibuprofen as needed for your pelvic discomfort. Take it with food. Prescriptions: New ibuprofen 600 mg tablet 600 mg PO Q6H PRN (Reason: pain) Qty: 20 0RF No Action ibuprofen 800 mg tablet 800 mg PO Q8H PRN (Reason: pain) Qty: 14 0RF ibuprofen 600 mg tablet 600 mg PO Q6H PRN (Reason: fever or pain) Qty: 30 0RF cefuroxime axetil 250 mg tablet 250 mg PO BID 7 Days Qty: 14 0RF ibuprofen 600 mg tablet 600 mg PO Q6H PRN (Reason: pain) Qty: 20 0RF trazodone 50 mg tablet 50 mg PO BEDTIME PRN clonazepam 0.5 mg tablet,disintegrating 0.5 mg PO DAILY Jackie 30 mg tablet 30 mg PO ONCE Qty: 1 3RF desog-e.estradiol/e.estradiol 0.15-0.02 mgx21 /0.01 mg x 5 tablet 1 tab PO DAILY Qty: 84 4RF Rx Instructions: Start at least 5 days after taking other medication and preferably with the 1st day of your next period Stand Alone Forms: Work/School Release Interventions: ED Discharge Assessment Last Done: 10/24/24 22:16 Discharge Date/Time: 10/24/24 22:22 Print Language: Greenlandic
[2024-10-24 17:31] LABS: MANUAL DIFF FLAG NO
[2024-10-24 17:33] LABS: Appearance Urine Cloudy; Color Urine Yellow; Glucose Urine UA Negative (Negative); Leukocyte Esterase Urine Negative (Negative); Nitrite Urine Negative (Negative); PH 8.5 (5.0-9.0); Specific Gravity - Urine 1.025 (1.005-1.025); Urine Blood Negative (Negative); Urine Ketones Negative (Negative); Urine Protein Negative (Neg-Trace)
[2024-10-24 17:33] LABS: Basophils Percent Auto 0.4 % (0-2); Eosinophils Absolute Auto 0.1 X10*3/uL (0.0-0.4); Eosinophils Percent Auto 1.5 % (0-4); Hematocrit 41.9 % (37.0-47.0); Hemoglobin 13.7 g/dl (12.0-16.0); Imm Gran Abs Auto 0.01 X10*3/uL (0.00-0.03); Imm Gran Pct Auto 0.1 % (0.0-0.4); Lymphocytes Absolute Auto 2.2 X10*3/uL (1.2-4.9); Lymphocytes Percent Auto 30.5 % (20-40); Mean Corpuscular HGB Conc 32.7 g/dl (31.0-35.0); Mean Corpuscular Hemoglobin 27.7 pg (27.0-33.0); Mean Corpuscular Volume 84.8 fL (80.0-98.0); Mean Platelet Volume 10.1 fL (9.4-12.3); Monocytes Absolute Auto 0.4 X10*3/uL (0.1-1.2); Neutrophils Absolute Auto 4.5 x10*3/uL (2.0-8.3); Neutrophils Percent Auto 62.5 % (45-73); Platelet Count 239 X10*3/uL (160-400); Red Blood Count 4.94 X10*6/uL (4.20-5.50); Red Cell Distribution Width 12.8 % (11.0-16.0); White Blood Count 7.2 X10*3/uL (4.8-10.8)
[2024-10-24 17:53] LABS: Alanine Aminotransferase 44 U/L (0-31); Alkaline Phosphatase 102 U/L (39-117); Anion Gap 11 (12-20); Aspartate Amino Transferase 27 U/L (5-31); Bilirubin Total 0.4 mg/dL (0.0-1.0); Blood Urea Nitrogen 10 mg/dL (9-16); Calcium 9.2 mg/dL (8.4-10.2); Carbon Dioxide 22 mmol/L (22-29); Chloride 112 mmol/L (96-108); Creatinine Clr Calc Pharmacy 134.6; Estimated Glomerular Filt Rate > 60; Glucose Random 85 mg/dL (60-115); Potassium 3.9 mmol/L (3.3-5.1); Sodium 141 mmol/L (135-145); Total Protein 7.7 g/dL (6.5-8.0)
[2024-10-24 17:57] LABS: HCG Quantitative < 2 mIU/mL
[2024-10-24 20:57] VITALS: BP 118/80; PULSE 84; RESP 16; TEMP 36.6; O2SAT 100
[2024-10-24] MEDS: Ibuprofen 600 MG TABLET PO (21:27)
--- OUTSIDE RECORDS SUMMARY | 2024-10-24 21:51 | XMS_ITS | Encounter Summary ---
Author Organization [facility] Address [address] [place] [address] Care Team Providers Care Customer Account Administrator Name Role Phone Alan, Ruth Elvira CONSTRUCTION CHECKER Primary Care Provider [phone] Chiquis Fish SUBSTATION MECHANIC Primary Care Provider [phone] Encounter Details Date Type Department Care Team (Late st Contact Info) Description 06/03/2022 Abstract [facility] ADULT DENTAL [address] [place] [address] Dental, Provider, DDS Social History Tobacco Use Types Packs/Day Years Used Date Smoking Tobacco: Never Assessed Comments Unknown Sex and Gender Information Value Date Recorded Sex Assigned at Female 04/25/2022 10:16 AM EDT Legal Sex Female 10:16 AM EDT Gender Identity Female 04/25/2022 10:16 AM EDT Sexual Orientation Straight 04/25/2022 10 :16 AM EDT documented as of this encounter Plan of Treatment Upcoming Encounters Date Type Department Care Team (Late st Contact Info) Description 10/25/2024 10:30 AM EDT Office Visit [facility] OPTOMETRY [address] [place] [address] TarPatricia morrow, OD [address] [place] [address] 10/28/2024 1:00 PM EDT Office Visit [facility] ADULT DENTAL [address] [place] [address] Leelee Yarelis [address] [place] [address] 01/08/2025 10:45 AM EDT Office Visit [facility] MEDICINE [address] [place] [address] Chiquis Fish NP [address] [place] [address] documented as of this encounter Procedures Procedure Name Priority Date/Time Associated Diagnosis Comments 31 B COMPOSITE FILLING Routine 2 12:00 AM EST 30 NAYE COMPOSITE FILLING Routine 06/03/20 22 12:00 AM EST 18 NAYE COMPOSITE FILLING Routine 06/03/20 22 12:00 AM EST 19 NAYE COMPOSITE FILLING Routine 06/03/20 22 12:00 AM EST 14 O COMPOSITE FILLING Routine 2 12:00 AM EST 3 LO COMPOSITE FILLING Routine 2 12:00 AM EST 32 EXTRACTION Routine 06/03/2022 12:00 AM EST 16 EXTRACTION Routine 06/03/2022 12:00 AM EST 1 EXTRACTION Routine 06/03/2022 12:00 AM EST documented in this encounter Visit Diagnoses Not on filedocumented in this encounter Care Teams Customer Account Administrator Relationship Specialty Start Date End Date Ruth Phillips FNP PCP - General Family Medicine 02/21/22 03/30/23 Chiquis Fish NP [address] [place] [address] PCP - General Family Medicine 03/31/23 documented as of this encounter
--- OUTSIDE RECORDS SUMMARY | 2024-10-24 21:51 | XMS_ITS | Encounter Summary ---
Author Organization [employer] Address [address] [place] [address] Care Team Providers Care Die Designer Apprentice Name Role Phone Ruth Phillips STATISTICAL ANALYST Primary Care Provider [phone] Chiquis Fish NP Primary Care Provider [phone] Reason for Visit * Reason Onset Date Comments symptoms swelling 10/07/2022 Patient had Or al Surgery for wisdom teeth and states that she is continuing to swell and feels like there is a ball in the side of her cheek. Unsure if its on the gum or cheek Encounter Details Date Type Department Care Team (Late st Contact Info) Description 10/07/2022 Telephone [facility] ADULT DENTAL [address] [place] [address] Braulio Carr DMD [address] [place] [address] symptoms swelling (Patient had Oral Surgery for wisdom teeth and states that she is continuing to swell and feels like there is a ball in the side of her cheek. Unsure if its on the gum or cheek) Social History Tobacco Use Types Packs/Day Years Used Date Smoking Tobacco: Never Passive Smoke Exposure: Never Smokeless Tobacco: Never Alcohol Use Standard Drinks/Week Comments Yes 0 (1 standard drink = 0.6 oz pure alcohol) on special occasions, Pt drinks wine Depression Answer Date Recorded Patient Health Questionnaire-9 Score 7 06/28/2022 Depression Answer Date Recorded Patient Health Questionnaire-2 Score 2 06/28/2022 Comments Unknown Sex and Gender Information Value Date Recorded Sex Assigned at Female 04/25/2022 10:16 AM EDT Legal Sex Female 10:16 AM EDT Gender Identity Female 04/25/2022 10:16 AM EDT Sexual Orientation Straight 04/25/2022 10 :16 AM EDT COVID-19 Exposure Response Date Recorded In the last 10 days, have yo u been in contact with someone who was confirmed or suspected to have Coronavirus/COVID-19? No / Unsure 10/07/2022 2:21 PM EDT documented as of this encounter Miscellaneous Notes * Telephone Encounter - Sonal Mccoy - 10/13/2022 12:37 PM EDT Patient called back and stated that she received a call to come in today for 1pm and agreed, but isunable to make it in today and would like to come in the morning tomorrow if at all possible. She doesn't want to spend the weekend in pain. DR Kinneyally signed by Sonal Mccoy at 10/13/2022 12:39 PM EDT * Telephone Encounter - Sonal Mccoy - 10/13/2022 10:11 AM EDT Patient was seen with Dr. Jimenez on 10/07 due to swelling from ext with Dr. Carr on 10/05. Patient states that the swelling has gotten better but now the pain has worsened with foul taste. Pls advise DR Palomino signed by Sonal Mccoy at 10/13/2022 10:13 AM EDT * Telephone Encounter - Sonal Mccoy - 10/07/2022 8:59 AM EDT Patient had Oral Surgery for wisdom teeth and states that she is continuing to swell and feels likethere is a ball in the side of her cheek. Unsure if its on the gum or cheek DR Palomino signed by Sonal Mccoy at 10/07/2022 9:02 AM EDT documented in this encounter Plan of Treatment Upcoming Encounters Date Type Department Care Team (Late st Contact Info) Description 10/25/2024 10:30 AM EDT Office Visit [facility] OPTOMETRY [address] [place] [address] Patricia Mora, OD [address] [place] [address] 10/28/2024 1:00 PM EDT Office Visit [facility] ADULT DENTAL [address] [place] [address] Kris Mckoyaris [address] [place] [address] 01/08/2025 10:45 AM EDT Office Visit [facility] MEDICINE [address] [place] [address] Chiquis Fish NP [address] [place] [address] documented as of this encounter Visit Diagnoses Not on filedocumented in this encounter Additional Health Concerns Assessment Noted Time PHQ-9 Depression Total Score: 7 06/28/19 9:35 AM EST documented as of this encounter Care Teams Die Designer Apprentice Relationship Specialty Start Date End Date Ruth Phillips FNP PCP - General Family Medicine 02/21/22 03/30/23 Chiquis Fish NP [address] [place] [address] PCP - General Family Medicine 03/31/23 documented as of this encounter
--- OUTSIDE RECORDS SUMMARY | 2024-10-24 21:51 | XMS_ITS | Encounter Summary ---
Author Organization [facility] Address [address] [place] [address] Care Team Providers Care Amusement Ride Inspector Name Role Phone Ruth Phillips LOADING MACHINE OPERATOR HELPER Primary Care Provider [phone] Chiquis Fish DERRICK BOAT RUNNER Primary Care Provider [phone] Encounter Details Date Type Department Care Team ([facility] Contact Info) Description 07/21/2022 Abstract [facility] ADULT DENTAL [address] [place] [address] Braulio Carr, DMD [address] [place] [address] Social History Tobacco Use Types Packs/Day Years [...] suspected to have Coronavirus/COVID-19? No / Unsure 07/07/2022 1:13 PM EST documented as of this encounter Plan of Treatment Upcoming Encounters Date Type Department Care Team ([facility] st Contact Info) Description 10/25/2024 10:30 AM EDT Office Visit [facility] OPTOMETRY [address] [place] [address] Patricia Mora, OD [address] [place] [address] 10/28/2024 1:00 PM EDT Office Visit [facility] ADULT DENTAL [address] [place] [address] Leelee, Yarelis [address] [place] [address] 01/08/2025 10:45 AM EDT Office Visit [facility] MEDICINE [address] [place] [address] Chiquis Fish NP [address] [place] [address] documented as of this encounter Visit Diagnoses Not on filedocumented in this encounter Additional Health Concerns Assessment Noted Time PHQ-9 Depression Total Score: 7 06/28/19 23 9:35 AM EST documented as of this encounter Care Teams Amusement Ride Inspector Relationship Specialty Start Date End Date Ruth Phillips FNP PCP - General Family Medicine 02/21/22 03/30/23 Chiquis Fish NP [address] [place] [address] PCP - General Family Medicine 03/31/23 documented as of this encounter
--- OUTSIDE RECORDS SUMMARY | 2024-10-24 21:51 | XMS_ITS | Encounter Summary ---
Author Organization [employer] Address [address] [place] [address] Care Team Providers Care Ore Crusher Name Role Phone Chiquis Fish NP Primary Care Provider [phone] Encounter Details Date Type Department Care Team (Late st Contact Info) Description 10/24/2024 Orders Only GENERIC EXTERNAL DATA DEPARTMENT Provider, Generic External Data Social History Tobacco Use Types Packs/Day Years Used Date Smoking Tobacco: Never Passive Smoke Exposure: Never Smokeless Tobacco: Never Alcohol Use Standard Drinks/Week Comments Not Currently 0 (1 standard drink = 0.6 oz pure alcohol) on special occasions, Pt drinks wine Alcohol Answer Date Recorded How often do you have a drink containing alcohol ? 0 07/08/2024 How many drinks containing a lcohol do you have on a typical day when you are drinking? 0 07/08/2024 How often do you have six or more drinks on one occasion? 0 07/08/2024 Depression Answer Date Recorded Patient Health Questionnaire-9 Score 5 07/08/2024 Patient Health Questionnaire-9 Score 5 07/08/2024 Last PHQ-9: Questionnaire Data Not on file 0 07/08/2024 Housing Stability Answer Date Recorded What is your housing situation today? I have miguelissa alexander 07/08/[address] you li ve. Do you have problems with any of the following? None of the above 07/08/2024 Food Insecurity Answer Date Recorded Within the past 12 months, y ou worried that your food would run out before you got money to buy more: Never True 07/08/2024 Within the past 12 months,th e food you bought just didn't last and you didn't have enough money to get more: Never True Transportation Answer Date Recorded In the past 12 months, has l ack of transportation kept you from medical appts, meetings, work or from getting things needed for daily living? No 07/08/2024 Utilities Answer Date Recorded In the past 12 months, has t he electric, gas, oil or water company threatened to shut off services in your home? No 07/08/2024 Depression Answer Date Recorded Patient Health Questionnaire-2 Score 1 07/08/2024 Internet Access Answer Date Recorded Internet Access Q1 Yes 07/08/2024 Internet Access Q2 Not on file 07/08/2024 Comments Yes Sex and Gender Information Value Date Recorded Sex Assigned at Female 04/25/2022 10:16 AM EDT Legal Sex Female 10:16 AM EDT Gender Identity Female 04/25/2022 10:16 AM EDT Sexual Orientation Straight 04/25/2022 10 :16 AM EDT documented as of this encounter Plan of Treatment Upcoming Encounters Date Type Department Care Team (Late st Contact Info) Description 10/25/2024 10:30 AM EDT Office Visit [facility] OPTOMETRY [address] [place] [address] Tarka, Patricia, OD [address] [place] [address] 10/28/2024 1:00 PM EDT Office Visit [facility] ADULT DENTAL [address] [place] [address] Leelee, Yarelis [address] [place] [address] 01/08/2025 10:45 AM EDT Office Visit [facility] MEDICINE [address] [place] [address] Chiquis Fish, PERSONNEL ANALYST [address] [place] [address] documented as of this encounter Procedures Procedure Name Priority Date/Time Associated Diagnosis Comments US PELVIC OVARIAN DOPPLER Routine 10/24/2024 8:12 PM EDT CBC WITH AUTO DIFFERENTIAL Routine 10/24/2024 5:26 PM EDT HCG, TOTAL, QN Routine 10/24/2024 5:26 PM EDT COMPREHENSIVE METABOLIC PANEL Routine 10/24/2024 5:26 PM EDT URINALYSIS WITH REFLEX MICROSCOPIC Routine 10/24/2024 5:21 PM EDT documented in this encounter Results * US PELVIC OVARIAN DOPPLER (10/24/2024 8:12 PM EDT) Anatomical Region Laterality Modality Abdomen Ultrasound 10/24/2024 8:12 PM EDT Narrative 10/24/2024 8:15 PM EDT ? [facility] ?[address] ?[place] [address] ? Ultrasound Report ? Signed ? Patient: Isaak Saqib Mcintyre ?MR# ?? : [id number] ? : 1995 ?Acct:[id number] ? Age/Sex: 29 / F ?ADM Date: 10/24/24 ? Loc: HO.ED ? Attending Dr: ? Ordering Physician: Juaquin Napoles ?? Date of Service: 10/24/24 ?? Procedure(s): US pelvic ovarian doppler ?? Accession Number(s): [id number] ? cc: Juaquin Napoles; [facility] ? CLINICAL HISTORY: pelvic pain. torsion? cysts ? US pelvis transabdominal and transvaginal ? Comparison: None ? Findings: ?? Transabdominal scanning performed for overall anatomy. Transvaginal ?? scanning performed for additional detail. ? Anteverted and anteflexed uterus is 8.1 cm length. ?? Portions of the uterus obscured by side of the artifacts. Imaged ?? endometrium measures 5 mm thickness. Portions of the endometrium are ?? obscured. Small amount of fluid in the imaged endometrium is nonspecific ?? (image 39). ?? No significant free fluid in the imaged pelvis. ?? Small follicles noted in both ovaries. ?? Right ovary 2.3 x 2.2 x 1.5 cm. ?? Left ovary 2.5 x 1.9 x 1.8 cm. ? Doppler: Doppler arterial waveform of the left ovary demonstrates peak ?? systolic velocity of the 12 cm/sec and resistive index of 0.5. Doppler ?? arterial waveform of the right ovary demonstrates peak systolic velocity ?? of the 6 cm/sec and resistive index of 0.5. ? IMPRESSION: ?? 1. No ultrasound findings of ovarian torsion. ? 2. Small amount of fluid is in the nonenlarged endometrium, with ?? nonuniformity of the endometrium. Please consider follow-up in 6 or 10 ?? weeks to ensure normalization of the endometrium. ? This document has been electronically signed by: Dennis Mendez MD on ?? 10/24/2024 20:12:53 ? Dictated By: ?Dennis Mendez MD ? Signed By: ?<Electronically signed by Dennis Mendez MD in OV> ? 10/24/242013 ? DD/ 11 ? TD/TT: 10/24/242011 ? Magazine Hand: ? Procedure Note Carterter, Image - 10/24/2024 [place] [address] Ultrasound Report Signed Patient: Jose Luis Cash# : [id number] : 1995Acct:[id number] Age/Sex: 29 FADM Date: 10/24/24 Loc: HO.ED Attending Dr: Ordering Physician: Juaquin Napoles Date of Service: 10/24/24 Procedure(s): US pelvic ovarian doppler Accession Number(s): [id number] cc: Juaquin Napoles; [facility] CLINICAL HISTORY: pelvic pain. torsion? cysts US pelvis transabdominal and transvaginal Comparison: None Findings: Transabdominal scanning performed for overall anatomy. Transvaginal scanning performed for additional detail. Anteverted and anteflexed uterus is 8.1 cm length. Portions of the uterus obscured by side of the artifacts. Imaged endometrium measures 5 mm thickness. Portions of the endometrium are obscured. Small amount of fluid in the imaged endometrium is nonspecific (image 39). No significant free fluid in the imaged pelvis. Small follicles noted in both ovaries. Right ovary 2.3 x 2.2 x 1.5 cm. Left ovary 2.5 x 1.9 x 1.8 cm. Doppler: Doppler arterial waveform of the left ovary demonstrates peak systolic velocity of the 12 cm/sec and resistive index of 0.5. Doppler arterial waveform of the right ovary demonstrates peak systolic velocity of the 6 cm/sec and resistive index of 0.5. IMPRESSION: 1. No ultrasound findings of ovarian torsion. 2. Small amount of fluid is in the nonenlarged endometrium, with nonuniformity of the endometrium. Please consider follow-up in 6 or 10 weeks to ensure normalization of the endometrium. This document has been electronically signed by: Dennis Mendez MD on 10/24/2024 20:12:53 Dictated By: Dennis Mendez MD Signed By: <Electronically signed by Dennis Mendez MD in OV> 10/24/242013 DD/ 11 TD/TT: 10/24/242011 Magazine Hand: [facility] External Provider IMG US PROCEDURES Edited Result - Final * hCG, Total, Quantitative (10/24/2024 5:26 PM EDT) HCG Quantitative <2 mIU/mL [facility] Comment:Weeks post LMP Appro ximate hCG(Last Menstrual Period) Range (mIU/ml)3 - 4 weeks 9 - 1304 - 5 weeks 75 - 2,6005 - 6 weeks 850 - 20,8006 - 7 weeks 4000 - 100,2007 - 12 weeks 11,500 - 289,49978 - 16 weeks 18,300 - 137,01264 - 29 weeks (2nd trimester) 1,400 - 53,81613 - 41 weeks (3rd trimester) 940 - 60,000The Toro B- hCG assay is used for the early detection ofpregnancy; it cannot be used to diagnose any conditionunrelated to . If a B-hCG level is not supportedby the clinical evidence, results should be confirmed by analternative method (qualitative urine hCG, for example). 10/24/2024 5:26 PM EDT 10/24/2024 5:27 PM EDT Generic External Data Provider LAB BLOOD ORDERAB LES Final Result [facility] [address] [place] [phone] * (ABNORMAL) Comprehensive Metabolic Panel (10/24/2024 5:26 PM EDT) Sodium 141 135 - 145 mmol/L [facility] Potassium 3.9 3.3 - 5.1 mmol/L [facility] Chloride 112(H) 96 - 108 mmol/L [facility] Carbon Dioxide 22 22 - 29 mmol/L [facility] Anion Gap 11(L) 12 - 20 [facility] Urea Nitrogen (BUN) 10 9 - 16 mg/dL [facility] Creatinine, Serum 0.65 0.5 - 1.4 mg/dL [facility] Creatinine Clr Calc Pharmacy 134.6 [facility] Comment:Provided height and weight: 149.86 cm,105.233 kg.eGFR (calculated from the MDRD study equation) and eCrCl(calculated from the Cockcroft-Gault equation) are based ondifferent parameters and may not yield comparable results.If eCrCl result is absurd, please check patient'sheight/weight. Estimated Glomerular Filt Rate >60 [facility] Comment:Chronic Kidney Disea se: Estimated GFR < 60 mL/min/1.78f5Nckhlk Kidney Disease: Estimated GFR < 15 mL/min/1.73m2 Glucose 85 60 - 115 mg/dL [facility] Calcium 9.2 8.4 - 10.2 mg/dL [facility] Bilirubin, Total 0.4 0.0 - 1.0 mg/dL [facility] Aspartate Amino Transferase 27 5 - 31 U/L [facility] Alanine Aminotransferase 44(H) 0 - 31 U/L [facility] Total Protein 7.7 6.5 - 8.0 g/dL [facility] Albumin Level 4.0 3.5 - 5.0 g/dL [facility] Alkaline Phosphatase 102 39 - 117 U/L [facility] 10/24/2024 5:26 PM EDT 10/24/2024 5:27 PM EDT us Generic External Data Provider LAB BLOOD ORDERAB LES Final Result [facility] [address] [place], [place] [phone] * CBC auto differential (10/24/2024 5:26 PM EDT) White Blood Count 7.2 4.8 - 10.8 X10*3/uL [facility] Red Blood Count 4.94 4.20 - 5.50 X10*6/uL [facility] Hemoglobin 13.7 12.0 - 16.0 g/dl [facility] Hematocrit 41.9 37.0 - 47.0 % [facility] Mean Corpuscular Volume 84.8 80.0 - 98.0 fL [facility] Mean Corpuscular Hemoglobin 27.7 27.0 - 33.0 pg [facility] Mean Corpuscular HGB Conc 32.7 31.0 - 35.0 g/dl [facility] Red Cell Distribution Width 12.8 11.0 - 16.0 % [facility] Platelet Count 239 160 - 400 X10*3/uL [facility] Mean Platelet Volume 10.1 9.4 - 12.3 fL [facility] Neutrophils Percent Auto 62.5 45 - 73 % [facility] Imm Gran Pct Auto 0.1 0.0 - 0.4 % [facility] Lymphocytes Percent Auto 30.5 20 - 40 % [facility] Monocytes Percent Auto 5.0 2 - 11 % [facility] Eosinophils Percent Auto 1.5 0 - 4 % [facility] Basophils Percent Auto 0.4 0 - 2 % [facility] NRBC Pct Auto 0.0 0.0 - 0.2 /100WBC [facility] Neutrophils Absolute Auto 4.5 2.0 - 8.3 x10*3/uL [facility] Imm Gran Abs Auto 0.01 0.00 - 0.03 X10*3/uL [facility] Lymphocytes Absolute Auto 2.2 1.2 - 4.9 X10*3/uL [facility] Monocytes Absolute Auto 0.4 0.1 - 1.2 X10*3/uL [facility] Eosinophils Absolute Auto 0.1 0.0 - 0.4 X10*3/uL [facility] Basophils Absolute Auto 0.0 0.0 - 0.2 X10*3/uL [facility] NRBC Abs Auto 0.000 0.0 - 0.012 X10*3/uL [facility] 10/24/2024 5:26 PM EDT 10/24/2024 5:27 PM EDT us Generic External Data Provider LAB BLOOD ORDERAB LES Final Result Performing Organization Address [facility] [address]/ZIP Co de Phone Number [facility] [address] [place] [phone] * Urinalysis w/reflex microscopic (10/24/2024 5:21 PM EDT) Color Urine Yellow [facility] Appearance Urine Cloudy [facility] PH 8.5 5.0 - 9.0 [facility] Glucose Urine UA Negative Negative mg/dL [facility] Urine Blood Negative Negative [facility] Specific [place] - Urine 1.025 1.005 - 1.025 [facility] Urine Protein Negative Neg-Trace mg/dL [facility] Urine Ketones Negative Negative mg/dL [facility] Nitrite Urine Negative Negative [facility] Leukocyte Esterase Urine Negative Negative [facility] 10/24/2024 5:21 PM EDT 10/24/2024 5:27 PM EDT Narrative [facility] - 10/24/2024 5:34 PM EDT Urine, Clean Catch us Generic External Data Provider LAB URINE ORDERAB LES Final Result Performing Organization Address [facility] [address]/ZIP Co de Phone Number [facility] [address] [place] [phone] documented in this encounter Visit Diagnoses Not on filedocumented in this encounter Additional Health Concerns Assessment Noted Time PHQ-9 Depression Total Score: 5 07/08/19 25 12:01 PM EST documented as of this encounter Care Teams Ore Crusher Relationship Specialty Start Date End Date Chiquis Fish NP [address] [place] [address] PCP - General Family Medicine 03/31/23 documented as of this encounter
--- OUTSIDE RECORDS SUMMARY | 2024-10-24 21:51 | XMS_ITS | Encounter Summary ---
Author Organization [employer] Address [address] [facility] 7t [place] [address] Care Team Providers Care Bladder Tier Name Role Phone Chiquis Fish NP Primary Care Provider [phone] Reason for Visit * Reason Onset Date Comments Nurse Triage 07/19/2023 Encounter Details Date Type Department Care Team ([facility] st Contact Info) Description 07/19/2023 Telephone [facility] MEDICINE [address] [place], [place] [phone] Chiquis Fish NP [address] [place] [address] Nurse Triage Social History Tobacco Use Types Packs/Day Years Used Date Smoking Tobacco: Never Passive Smoke Exposure: Never Smokeless Tobacco: Never Alcohol Use Standard Drinks/Week Comments Yes 0 (1 standard drink = 0.6 oz pure alcohol) on special occasions, Pt drinks wine Depression Answer Date Recorded Patient Health Questionnaire-9 Score 7 06/28/2022 Housing Stability Answer Date Recorded What is your housing situation today? I have miguel alexander 04/10/[address] you li ve. Do you have problems with any of the following? None of the above 04/10/2023 Food Insecurity Answer Date Recorded Within the past 12 months, y ou worried that your food would run out before you got money to buy more: Never True 04/10/2023 Within the past 12 months,th e food you bought just didn't last and you didn't have enough money to get more: Never True Transportation Answer Date Recorded In the past 12 months, has l ack of transportation kept you from medical appts, meetings, work or from getting things needed for daily living? No 04/10/2023 Utilities Answer Date Recorded In the past 12 months, has t he electric, gas, oil or water company threatened to shut off services in your home? No 04/10/2023 Depression Answer Date Recorded Patient Health Questionnaire-2 Score 2 06/28/2022 Comments Unknown Sex and Gender Information Value Date Recorded Sex Assigned at Female 04/25/2022 10:16 AM EDT Legal Sex Female 10:16 AM EDT Gender Identity Female 04/25/2022 10:16 AM EDT Sexual Orientation Straight 04/25/2022 10 :16 AM EDT documented as of this encounter Miscellaneous Notes * Telephone Encounter - Reyna Alarcon RN - 07/19/2023 12:39 PM EST Called pt. Back. Pt. States that she has been having chest aches with deep breaths on and off x 1 week for 1-2 minutes. Pt states that it starts near her heart and then travels to the other side of chest. Pt. States that she gets some achiness in her hands bilaterally a couple times. No cough or cold sx. Pt. Denies chest pain at present and states .it's not like a pain but more of an achy feeling and mostly happens when I walk a flight of stairs which is not normal for me to feel out of breath . Pt denies any sweating or pain that radiates down arm, denies jaw pain, denies dizziness. Pt. States that her left ear is painful and has a ringing sound over 24 hours. Pt. Has been taking Motrin with no relief. Pt. States that she does suffer from Anxiety but, that she has never had sx. Like this before. Pt denies any chest pain at present and says it just comes out of the blue . I advised pt. To go to ED for evaluation. Pt. States she has class today because she is in college. I advised pt. That she should go to ED as this could be a warning sign for something that would need medical care. Pt. Agrees and she states that she will go to [facility] for evaluation. Pt. Wants me to send this note to PCP to let her know. I will forward note. Protocol Used: Chest Pain (Adult) Protocol-Based Disposition: Go to ED/[facility] Now (or to Office with PCP Approval)- Advised pt. To go toED for evaluation Will go to [facility] now. Video visit not offered Positive Triage Questions: * Chest pain or angina comes and goes and is happening more often (increasing in frequency) or getting worse (increasing in severity) (Exception: Chest pains that last only a few seconds.) * Chest pain(s) lasting a few seconds persists > 3 days * All higher-acuity triage questions were negative * Telephone Encounter - Mary Hurley - 07/19/2023 12:36 PM EST Symptoms: Chest Pain - Adult, Earache, Hearing Loss Outcome: Schedule an urgent appointment (within 1 hour) or talk to a nurse or provider soon Reason: Caller denied all higher acuity questions The caller accepted this outcome documented in this encounter Plan of Treatment Upcoming Encounters Date Type Department Care Team (Late st Contact Info) Description 10/25/2024 10:30 AM EDT Office Visit [facility] OPTOMETRY [address] [place] [address] Patricia Mora, OD [address] [place] [address] 10/28/2024 1:00 PM EDT Office Visit [facility] ADULT DENTAL [address] [place] [address] Leelee, Yarelis [address] [place] [address] 01/08/2025 10:45 AM EDT Office Visit [facility] MEDICINE [address] [place] [address] Chiquis Fish NP [address] [place] [address] documented as of this encounter Visit Diagnoses Not on filedocumented in this encounter Additional Health Concerns Assessment Noted Time PHQ-9 Depression Total Score: 7 06/28/19 23 9:35 AM EST documented as of this encounter Care Teams Bladder Tier Relationship Specialty Start Date End Date Chiquis Fish NP [address] [place] [address] PCP - General Family Medicine 03/31/23 documented as of this encounter
--- OUTSIDE RECORDS SUMMARY | 2024-10-24 21:51 | XMS_ITS | Encounter Summary ---
Author Organization [employer] Address [address] [facility] [place] [address] Care Team Providers Care Night Assistant Name Role Phone Ruth Phillips AIRWAYS CONTROL SPECIALIST Primary Care Provider [phone] Chiquis Fish WORKFORCE STAFFING ADVISOR Primary Care Provider [phone] Reason for Visit * Reason Onset Date Comments Oral surgery open wound 11/07/2022 Encounter Details Date Type Department Care Team (Late st Contact Info) Description 11/07/2022 Telephone [facility] ADULT DENTAL [address] [place] [address] Braulio Carr, DMD [address] [place] [address] Oral surgery open wound Social History Tobacco Use Types Packs/Day Years [...] suspected to have Coronavirus/COVID-19? No / Unsure 10/19/2022 10:54 AM EDT documented as of this encounter Miscellaneous Notes * Telephone Encounter - Sonal Mccoy - 11/15/2022 10:30 AM EDT Patient called in again today stating that wound has not healing and food is getting stuck in it. She's not sure what to do. * Telephone Encounter - Sonal Mccoy - 11/07/2022 11:49 AM EDT Patint called in stating she is concerned of extraction done in September. States wound is still open and this has never happened to her in the past with past wisdom extraction. She is trying to find outif this is normal. She also states food is getting stuck in wound. documented in this encounter Plan of Treatment Upcoming Encounters Date Type Department Care Team (Late st Contact Info) Description 10/25/2024 10:30 AM EDT Office Visit [facility] OPTOMETRY [address] [place] [address] Patricia Mora, OD [address] [place] [address] 10/28/2024 1:00 PM EDT Office Visit [facility] ADULT DENTAL [address] [place] [address] Leelee, Yarelis [address] [place] [address] 01/08/2025 10:45 AM EDT Office Visit [facility] MEDICINE [address] [place] [address] Chiquis Fish NP [address] [place] [address] documented as of this encounter Visit Diagnoses Not on filedocumented in this encounter Additional Health Concerns Assessment Noted Time PHQ-9 Depression Total Score: 7 06/28/19 23 9:35 AM EST documented as of this encounter Care Teams Night Assistant Relationship Specialty Start Date End Date Ruth Phillips FNP PCP - General Family Medicine 02/21/22 03/30/23 Chiquis Fish NP [address] [place] [address] PCP - General Family Medicine 03/31/23 documented as of this encounter
--- OUTSIDE RECORDS SUMMARY | 2024-10-24 21:51 | XMS_ITS | Encounter Summary ---
Author Organization [employer] Address [address] [facility] [address]t [place] [address] Care Team Providers Care Cadmium Burner Name Role Phone Ruth Phillips MACHINE OPERATOR HOP WORKER Primary Care Provider [phone] Chiquis Fish CURRENCY EXAMINER Primary Care Provider [phone] Reason for Visit * Reason Onset Date Comments Appointment 09/08/2022 Encounter Details Date Type Department Care Team (Late st Contact Info) Description 09/08/2022 Telephone [facility] ADULT DENTAL [address] [place] [address] Braulio Carr, DMD [address] [place] [address] Appointment Social History Tobacco Use Types Packs/Day Years [...] * Telephone Encounter - Sonal Mccoy - 09/08/2022 2:40 PM EDT Patient calling in to check in on the status of appt for wisdom extraction DR documented in this encounter Plan of Treatment Upcoming Encounters Date Type Department Care Team (Late st Contact Info) Description 10/25/2024 10:30 AM EDT Office Visit [facility] OPTOMETRY [address] [place] [address] Garettcristhian Patricia, OD [address] [place] [address] 10/28/2024 1:00 PM EDT Office Visit [facility] ADULT DENTAL [address] [place] [address] Leelee Yarelis [address] [place] [address] 01/08/2025 10:45 AM EDT Office Visit [facility] MEDICINE [address] [place] [address] Chiquis Fish NP [address] [place] [address] documented as of this encounter Visit Diagnoses Not on filedocumented in this encounter Additional Health Concerns Assessment Noted Time PHQ-9 Depression Total Score: 7 06/28/19 23 9:35 AM EST documented as of this encounter Care Teams Cadmium Burner Relationship Specialty Start Date End Date Ruth Phillips FNP PCP - General Family Medicine 02/21/22 03/30/23 Chiquis Fish NP [address] [place] [address] PCP - General Family Medicine 03/31/23 documented as of this encounter
--- OUTSIDE RECORDS SUMMARY | 2024-10-24 21:51 | XMS_ITS | Encounter Summary ---
Author Organization [employer] Address [address] [place] [address] Care Team Providers Care Cap Jewel Plate Assembler Name Role Phone Chiquis Fish NP Primary Care Provider [phone] Reason for Visit * Reason Onset Date Comments walk in something in gum from ext 02/07/2024 Encounter Details Date Type Department Care Team (Late st Contact Info) Description 02/07/2024 Telephone [facility] ADULT DENTAL [address] [place] [address] Nabor De La Cruz DDS [address] [place] [address] walk in something in gum from ext Social History Tobacco Use Types Packs/Day Years Used Date Smoking Tobacco: Never Passive Smoke Exposure: Never Smokeless Tobacco: Never Alcohol Use Standard Drinks/Week Comments Not Currently 0 (1 standard drink = 0.6 oz pure alcohol) on special occasions, Pt drinks wine Depression Answer Date Recorded Patient Health Questionnaire-9 Score 0 12/04/2023 Patient Health Questionnaire-9 Score 0 12/04/2023 Last PHQ-9: Questionnaire Data Not on file 0 12/04/2023 Housing Stability Answer Date Recorded What is [...] Answer Date Recorded Patient Health Questionnaire-2 Score 0 12/04/2023 Comments No Sex and Gender Information Value Date Recorded Sex Assigned at Female 04/25/2022 10:16 AM EDT Legal Sex Female 10:16 AM EDT Gender Identity Female 04/25/2022 10:16 AM EDT Sexual Orientation Straight 04/25/2022 10 :16 AM EDT documented as of this encounter Miscellaneous Notes * Telephone Encounter - Sonal Mccoy - 02/07/2024 9:33 AM EDT Patient called in stating that she saw provider today and something left behind in her gum after appt. She stated she wanted to be seen again. Contacted service desk manager and after having verified with provider, I was informed by service desk manager that she can come in as walk in and she will be seen again. Patient has not been scheduled a second time and will present in service desk manager to be revised again DR documented in this encounter Plan of Treatment Upcoming Encounters Date Type Department Care Team (Late st Contact Info) Description 10/25/2024 10:30 AM EDT Office Visit [facility] OPTOMETRY [address] [place] [address] Tarka, Patricia, OD [address] [place] [address] 10/28/2024 1:00 PM EDT Office Visit [facility] ADULT DENTAL [address] [place] [address] Leelee, Yarelis [address] [place] [address] 01/08/2025 10:45 AM EDT Office Visit [facility] MEDICINE [address] [place] [address] Chiquis Fish NP [address] [place] [address] documented as of this encounter Visit Diagnoses Not on filedocumented in this encounter Additional Health Concerns Assessment Noted Time PHQ-9 Depression Total Score: 0 12/04/19 24 1:42 PM EDT documented as of this encounter Care Teams Cap Jewel Plate Assembler Relationship Specialty Start Date End Date Chiquis Fish NP [address] [place] [address] PCP - General Family Medicine 03/31/23 documented as of this encounter
--- OUTSIDE RECORDS SUMMARY | 2024-10-24 21:52 | XMS_ITS | Encounter Summary ---
Author Organization [facility] Address [address] [place] [address] Care Team Providers Care Hims Manager Name Role Phone Ruth Phillips Elvira STORE SALES LEADER Primary Care Provider [phone] Chiquis Fish NP Primary Care Provider [phone] Encounter Details Date Type Department Care Team (Latest Contact Info) Description 05/04/2021 Abstract [facility] CONVERSIONS Dental, Provider, DDS Social History Tobacco Use [...] Description 10/25/2024 10:30 AM EDT Office Visit [facility] OPTOMETRY [address] [place] [address] Patricia Mora, OD [address] [place] [address] 10/28/2024 1:00 PM EDT Office Visit [facility] ADULT DENTAL [address] [place] [address] Leelee, Yarelis [address] [place] [address] 01/08/2025 10:45 AM EDT Office Visit [facility] MEDICINE [address] [place] [address] Chiquis Fish NP [address] [place] [address] documented as of this encounter Visit Diagnoses Not on filedocumented in this encounter Care Teams Hims Manager Relationship Specialty Start Date End Date Ruth Phillips FNP PCP - General Family Medicine 02/21/22 03/30/23 Chiquis Fish NP [address] [place] [address] PCP - General Family Medicine 03/31/23 documented as of this encounter
--- OUTSIDE RECORDS SUMMARY | 2024-10-24 21:52 | XMS_ITS | Encounter Summary ---
Author Organization [employer] [facility] Address [address] [place] [address] Care Team Providers Care Audio Visual Specialist Name Role Phone Ruth Phillips Elvira TAYLORP Primary Care Provider [phone] Chiquis Fish NP Primary Care Provider [phone] Encounter Details Date Type Department Care Team (Latest Contact Info) Description 03/22/2019 Abstract [facility] CONVERSIONS Dental, Provider, DDS Social History [...] Upcoming Encounters Date Type Department Care Team ( st Contact Info) Description 10/25/2024 10:30 AM EDT Office Visit [facility] OPTOMETRY [address] [place] [address] Patricia Mora, OD [address] [place] [address] 10/28/2024 1:00 PM EDT Office Visit [facility] ADULT DENTAL [address] [place] [address] Leelee, Yarelis [address] [place] [address] 01/08/2025 10:45 AM EDT Office Visit [facility] MEDICINE [address] [place] [address] Chiquis Fish NP [address] [place] [address] documented as of this encounter Visit Diagnoses Not on filedocumented in this encounter Care Teams Audio Visual Specialist Relationship Specialty Start Date End Date Ruth Phillips FNP PCP - General Family Medicine 02/21/22 03/30/23 Chiquis Fish NP [address] [place] [address] PCP - General Family Medicine 03/31/23 documented as of this encounter
[2024-10-24 22:04] VITALS: BP 118/86; PULSE 74; RESP 16; TEMP 37.1; O2SAT 98
[2024-10-24 22:16] VITALS: BP 118/86; PULSE 74; RESP 16; TEMP 37.1; O2SAT 98
== END 2024-10-24 22:22 | disposition home or self-care (01) ==
PROVIDERS: Emergency Provider Internal Medicine
DX: N83.201 Unspecified ovarian cyst, right side (principal); R10.32 Left lower quadrant pain; R10.2 Pelvic and perineal pain; Z79.899 Other long term (current) drug therapy
CPT/HCPCS: 36415; 76830; 76856; 80053; 81003; 84702; 85025; 93975; 99284

== ENCOUNTER → 2024-10-24 19:07 | Outpatient (BNV) | payer MEDICAID, SELFPAY | PROVIDERS: Visit Provider Radiology Neuroradiology | DX: R10.2 Pelvic and perineal pain (principal) | CPT/HCPCS: 93975 ==

== ENCOUNTER 2024-12-06 14:37 | Outpatient (REF) | payer MEDICAID, SELFPAY ==
--- NOTE | ~2024-12-06 | US_ITS ---
CLINICAL HISTORY: re-evaluation of right ovarian cyst and free fluid in endometrium Exam: Pelvic ultrasound, transabdominal and transvaginal evaluation. Comparison: None. Findings: Transabdominal and transvaginal pelvic ultrasound study was performed. Urinary bladder is minimally distended on the transabdominal images. Uterus is anteverted and anteflexed. Uterus measures 6.6 x 3.0 x 3.8 cm in size. Myometrium is unremarkable. Endometrial stripe measures 2.7 mm in thickness without mass, polyp, or focal thickening. Right ovary measures 2.5 x 1.5 x 1.7 cm in size. Left ovary measures 3.0 x 1.8 x 2.2 cm in size. Ovaries are unremarkable in appearance bilaterally. No free pelvic fluid. Impression: Negative pelvic ultrasound. This document has been electronically signed by: Addison Perry MD on 12/08/2024 09:20:23
--- OUTSIDE RECORDS SUMMARY | 2024-12-06 14:40 | XMS_ITS | Encounter Summary ---
Author Organization [employer] Address [address] [place] [address] Care Team Providers Care Assistant Women'S Rowing Coach Name Role Phone Ruth Phillips TRUCK DRIVER FLATBED Primary Care Provider [phone] Chiquis Fish NP Primary Care Provider [phone] Reason for Visit * Reason Onset Date Comments symptoms swelling 10/07/2022 Patient had Or al Surgery for wisdom teeth and states that she is continuing to swell and feels like there is a ball in the side of her cheek. Unsure if its on the gum or cheek Encounter Details Date Type Department Care Team (Late st Contact Info) Description 10/07/[address] [facility] ADULT DENTAL [address] [place] [address] Braulio Carr DMD [address] [place] [address] symptoms swelling (Patient had Oral Surgery for [...] if its on the gum or cheek documented in this encounter Plan of Treatment Upcoming Encounters Date Type Department Care Team (Late st Contact Info) Description 12/31/2024 9:45 AM EDT Office Visit [facility] OPTOMETRY [address] [place], [place] [id number] Patricia Mora, OD [address] [place] [address] 01/08/2025 10:45 AM EDT Office Visit [facility] MEDICINE [address] [place] [address] Chiquis Fish NP [address] [place] [address] 05/14/2025 1:00 PM EST Office Visit [facility] ADULT DENTAL [address] [place] [address] Kris Mckoyaris [address] [place] [address] documented as of this encounter Visit Diagnoses Not on filedocumented in this encounter Additional Health Concerns Assessment Noted Time PHQ-9 Depression Total Score: 7 06/28/19 9:35 AM EST documented as of this encounter Care Teams Assistant Women'S Rowing Coach Relationship Specialty Start Date End Date Ruth Phillips FNP PCP - General Family Medicine 02/21/22 03/30/23 Chiquis Fish NP [address] [place] [address] PCP - General Family Medicine 03/31/23 documented as of this encounter
== END 2024-12-06 14:38 | disposition home or self-care (01) ==
LOC: HO.HMGCX 14:37
PROVIDERS: PCP Nurse Practitioner; Visit Provider Nurse Practitioner
DX: N83.201 Unspecified ovarian cyst, right side (principal)
CPT/HCPCS: 76830; 76856

== ENCOUNTER → 2024-12-06 15:02 | Outpatient (BNV) | payer MEDICAID, SELFPAY | PROVIDERS: PCP Nurse Practitioner; Visit Provider Radiology Diagnostic Radiology | DX: N83.201 Unspecified ovarian cyst, right side (principal) | CPT/HCPCS: 76830; 76856 ==